=== PATIENT | male | born 1945 | race Caucasian/White ===

== ENCOUNTER 2019-05-17 15:17 | Inpatient (IN) | payer MEDICARE ==
[~2019-05-17] VITALS: Ht 182.9 cm; Wt 119.9 kg
[2019-05-17] MEDS ORDERED: DEPAKOTE500 MG PO (15:38)
[2019-05-17] MEDS ORDERED: KLONOPIN1 MG PO (15:39)
[2019-05-17] MEDS ORDERED: SEROQUEL200 MG PO (15:39)
[2019-05-17] MEDS ORDERED: LIPITOR40 MG PO (15:40)
[2019-05-17] MEDS ORDERED: BAYER CHEWABLE81 MG PO (15:40)
[2019-05-17] MEDS ORDERED: ZYLOPRIM100 MG PO (15:40)
[2019-05-17 16:26] LABS: BASOPHILS 0 % (0-2); HEMATOCRIT 35.6 % (42.0-54.0); HEMOGLOBIN 12.2 g/dL (13.5-17.5); LYMPHOCYTES 52.2 % (15-50); MCH 33.8 pg (26.0-34.0); MCHC 34.3 g/dL (31.0-37.0); MCV 98.6 fL (80.0-100.0); MEAN PLATELET VOLUME 11.5 fL (7.4-10.4); MONOCYTES 6.5 % (2-11); NEUTROPHILS 38.3 % (40-80); PLATELET COUNT 98 10x3/uL (130-400); RBC 3.61 10x6/uL (4.20-6.10); RDW 13.3 % (11.5-14.5); WBC 2.3 10x3/uL (4.8-10.8)
[2019-05-17 16:32] LABS: ANION GAP 20.7 mmol/L (8-16); CALCIUM 7.3 mg/dL (8.5-10.1); CARBON DIOXIDE 25.3 mmol/L (21.0-32.0); CREATININE - SERUM 2.1 mg/dL (0.6-1.3)
[2019-05-17 16:37] LABS: ALBUMIN 2.8 g/dL (3.4-5.0); BILIRUBIN - TOTAL 0.51 mg/dL (0.2-1.3)
[2019-05-17 16:43] LABS: MAGNESIUM - SERUM 0.5 mg/dL (1.8-2.4)
[2019-05-17 17:11] LABS: PLATELET ESTIMATE DECREASED
[2019-05-17 19:10] LABS: KETONE - SERUM NEGATIVE (NEGATIVE)
[2019-05-17 19:20] LABS: AMYLASE - SERUM 62 U/L (25-115); LIPASE 311 U/L (73-393)
[2019-05-17 19:30] VITALS: BP 134/74
--- NOTE | 2019-05-17 20:17 | NUR ---
URINE SENT TO LAB
[2019-05-17 20:20] LABS: APPEARANCE HAZY (CLEAR); BILIRUBIN NEGATIVE (NEGATIVE); COLOR YELLOW (YELLOW); GLUCOSE NEGATIVE (NEGATIVE); KETONE NEGATIVE (NEGATIVE); NITRITE POSITIVE (NEGATIVE); PROTEIN TRACE mg/dL (NEGATIVE); SPECIFIC GRAVITY 1.015 (1.005-1.020); UROBILINOGEN NORMAL (NORMAL)
[2019-05-17 20:25] LABS: RED CELLS - URINE 0-5 /hpf (0-5)
[2019-05-17 20:26] LABS: BACTERIA MODERATE /hpf (NEGATIVE); EPITHELIAL CELLS 0-5 /hpf (0-5)
[2019-05-17 20:27] LABS: UDS - AMPHET NEGATIVE QUAL (NEGATIVE); UDS - BARB NEGATIVE QUAL (NEGATIVE); UDS - BENZO NEGATIVE QUAL (NEGATIVE); UDS - COCAINE NEGATIVE QUAL (NEGATIVE); UDS - OPIATE NEGATIVE QUAL (NEGATIVE); UDS - PCP NEGATIVE QUAL (NEGATIVE); UDS - THC NEGATIVE QUAL (NEGATIVE)
--- NOTE | 2019-05-17 22:45 | NUR ---
SEBASTIÁN VIA WC AND AMBULATES TO BED BED LOW AND LOCKED CALL LIGHT IN PLACE MEEDS SEEN TO AT THIS TIME
[2019-05-17] MEDS ORDERED: COZAAR50 MG PO (22:54)
[2019-05-17] MEDS ORDERED: GLUCOPHAGE500 MG PO (22:54)
[2019-05-18 04:00] VITALS: BP 145/76
--- NOTE | 2019-05-18 04:28 | NUR ---
I have reviewed this patient and I concur with the Shift Assessment completed by the Licensed Practical Nurse today this shift.
[2019-05-18 06:09] VITALS: BP 183/88; BMI 35.9
--- NOTE | 2019-05-18 07:34 | NUR ---
A/A/OX4. DENIES ANY PAIN AND ONLY REQUEST IS FOR LEMON INAJA DRINK WHICH WAS GIVEN. ASSESSMENT COMPLETED AND WILL CONTINUE POC. IV PATENT TO LEFT HAND WITHOUT REDNESS OR EDEMA. ON ROOM AIR WITH RESP EVEN AND UNLABORED. CALL LIGHT IN REACH AND BED IN LOW POSITION.
[2019-05-18 11:24] VITALS: BMI 35.8
[2019-05-18 13:36] VITALS: Ht 182.9 cm; Wt 119.9 kg
[2019-05-18 14:50] LABS: APTT 37.4 SECONDS (22.8-39.4); INR 1.02 (0.85-1.17); PROTIME 13.4 SECONDS (11.6-15.0)
[2019-05-18 14:56] VITALS: BP 167/77
[2019-05-18 16:00] VITALS: BP 169/89
--- NOTE | 2019-05-18 19:00 | NUR ---
GONZALEZ CATH PLACED PER STERILE TECHNIQUE WITH IMMEDIATE RETURN OF 300 CC CLEAR LIGHT YELLOW URINE.
--- NOTE | 2019-05-18 19:30 | NUR ---
REPORT RECEIVED, WILL CONTINUE POC. PATIENT IS AAOX4, LYING IN LOW-FOWLERS POSITION. NO S/S OF DISTRESS OBSERVED, RR EVEN AND UNLABORED ON ROOM AIR. F/C, PATENT, DRAINING YELLOW URINE TO LEFT SIDE OF BED. PATIENT DENIES NEEDS AT THIS TIME. CL IN REACH, BED LOCKED AND LOWERED. WILL CTM.
[2019-05-18 20:00] VITALS: BP 166/86
[2019-05-19] VITALS: BP 134/77
[2019-05-19 04:00] VITALS: BP 153/62
[2019-05-19 05:26] LABS: HEMATOCRIT 28.6 % (42.0-54.0); MCH 33.4 pg (26.0-34.0); MCHC 33.9 g/dL (31.0-37.0); MCV 98.6 fL (80.0-100.0); MEAN PLATELET VOLUME 11.1 fL (7.4-10.4); PLATELET COUNT 92 10x3/uL (130-400); RDW 13.4 % (11.5-14.5)
[2019-05-19 05:28] LABS: HEMOGLOBIN 9.7 g/dL (13.5-17.5); WBC 1.6 10x3/uL (4.8-10.8)
--- NOTE | 2019-05-19 05:44 | NUR ---
CRITICAL LAB RECEIVED WBC 1.6 NOTICED A DROP IN H&H WELL FROM 12.2 & 35.6 TO 9.7 & 28.6. ORDERED STAT HEMOGRAM.
[2019-05-19 05:53] LABS: ALBUMIN 2.2 g/dL (3.4-5.0); BILIRUBIN - TOTAL 0.37 mg/dL (0.2-1.3); CARBON DIOXIDE 28.8 mmol/L (21.0-32.0); PHOSPHOROUS 3.1 mg/dL (2.5-4.9); PROTEIN - SERUM 5.7 g/dL (6.4-8.2)
[2019-05-19 05:54] LABS: ANION GAP 12.1 mmol/L (8-16); CREATININE - SERUM 1.3 mg/dL (0.6-1.3); MAGNESIUM - SERUM 1.3 mg/dL (1.8-2.4)
[2019-05-19 05:55] LABS: CALCIUM 6.7 mg/dL (8.5-10.1); POTASSIUM - SERUM 2.9 mmol/L (3.5-5.1)
--- NOTE | 2019-05-19 06:03 | NUR ---
CRITICAL LABS RECEIVED FOR CALCIUM 6.7 K+2.9, ALSO WAS INFORMED THAT HEMOGRAM RESULTS WERE THE SAME PREVIOUSLY DRAWN CBC.
--- NOTE | 2019-05-19 07:03 | NUR ---
I have reviewed this patient and I concur with the Shift Assessment completed by the Licensed Practical Nurse today this shift.
[2019-05-19 07:50] LABS: EOSINOPHILS 5 % (0-7); LYMPHOCYTES 62 % (15-50); MONOCYTES 9 % (2-11); NEUTROPHILS 24 % (40-80); PLATELET ESTIMATE DECREASED
[2019-05-19 08:54] VITALS: BP 146/65
--- NOTE | 2019-05-19 09:44 | NUR ---
RESTING IN BED. NO DISTRESS.
[2019-05-19 12:00] VITALS: BP 145/69
--- NOTE | 2019-05-19 13:14 | NUR ---
F/C CLAMPED, WAITING TO COLLECT URINE. WAITING FOR PHARMACY TO DELIVER GRANIX.
[2019-05-19 15:19] LABS: % SATURATION 31 % (15-55); IRON 67 ug/dl (35-150); TOTAL IRON BIND CAPACITY 211 ug/dl (260-445); UNSAT IRON BIND CAPACITY 144 ug/dl (150-375)
[2019-05-19 16:00] VITALS: BP 146/84
--- NOTE | 2019-05-19 17:13 | NUR ---
K+ ADMINISTERED FOR 3.4, REDRAW ORDERED FOR 2114
[2019-05-19 20:30] VITALS: BP 179/85
[2019-05-19 20:40] LABS: POTASSIUM - SERUM 3.7 mmol/L (3.5-5.1)
[2019-05-19 20:42] LABS: MAGNESIUM - SERUM 0.8 mg/dL (1.8-2.4)
[2019-05-20] VITALS: BP 148/79
[2019-05-20 03:30] VITALS: BP 164/82
[2019-05-20 05:42] LABS: BASOPHILS 0 % (0-2); EOSINOPHILS 1.2 % (0-7); HEMATOCRIT 30.4 % (42.0-54.0); IMMATURE GRANULOCYTES 0.3 % (0-5); LYMPHOCYTES 26.3 % (15-50); MCH 32.8 pg (26.0-34.0); MCHC 32.9 g/dL (31.0-37.0); MCV 99.7 fL (80.0-100.0); MONOCYTES 5.6 % (2-11); NEUTROPHILS 66.6 % (40-80); PLATELET COUNT 87 10x3/uL (130-400); RBC 3.05 10x6/uL (4.20-6.10); RDW 13.3 % (11.5-14.5); WBC 3.4 10x3/uL (4.8-10.8)
[2019-05-20 06:19] LABS: ALBUMIN 2.2 g/dL (3.4-5.0); ANION GAP 11.5 mmol/L (8-16); BILIRUBIN - TOTAL 0.45 mg/dL (0.2-1.3); CALCIUM 7.2 mg/dL (8.5-10.1); CARBON DIOXIDE 31.1 mmol/L (21.0-32.0); CREATININE - SERUM 1.4 mg/dL (0.6-1.3); PHOSPHOROUS 2.5 mg/dL (2.5-4.9); POTASSIUM - SERUM 3.6 mmol/L (3.5-5.1); PROTEIN - SERUM 5.9 g/dL (6.4-8.2)
[2019-05-20 06:26] LABS: MAGNESIUM - SERUM 0.9 mg/dL (1.8-2.4)
--- NOTE | 2019-05-20 07:12 | NUR ---
PT RESTING PEACEFULLY IN BED. LYING ON PILLOW, BREATHS EVEN REGULAR AND UNLABORED. NO SIGNS OR SYMPTOMS OF ACUTE DISTRESS OTED AT THIS TIME. CL INR EACH, SRX2.
--- NOTE | 2019-05-20 09:56 | NUR ---
I have reviewed this patient and I concur with the Shift Assessment completed by the Licensed Practical Nurse today this shift.
[2019-05-20 10:48] VITALS: BP 136/74
[2019-05-20 15:24] VITALS: BP 132/78
--- NOTE | 2019-05-20 16:50 | NUR ---
PT AWAKE AND ORIENTED. HAS HAD BETTER DAY, STATES HE'S FEELING BETTER TODAY JUST EXCESSEVILY TIRED. FAMILY VISITED THROUGHOUT THE DAY. PT HAD SHOWER AND LINNEN CHANGE. NO COMPLAINTS/CONCERNS AT THIS TIME. CL IN REACH, SRX2.
[2019-05-20 18:27] VITALS: BP 149/83
[2019-05-20 20:00] VITALS: BP 157/83
--- NOTE | 2019-05-20 22:29 | NUR ---
RECEIVED UP IN BED WITH EYES OPEN AND TV ON. ALERT AND ORIENTED X4. UP WITH ASSISTR. IV TO LEFT HAND WITH LR @ 75CC/HR. DSG CLEAN DRY AND INTACT. OFF GOING REPORTED MAG WAS 1.3. WILL RECHECK IN AM. TELEMETRY IN PLACE. F/C INTACT WITH CLEAR YELLOW URINE DRAINING TO BEDISDE DRAINAGE BAG. DENIES ANY PAIN OR NEEDS AT THIS TIME.
[2019-05-21] VITALS: BP 155/72
[2019-05-21 04:00] VITALS: BP 154/77
[2019-05-21 05:26] LABS: BASOPHILS 0.2 % (0-2); EOSINOPHILS 2.2 % (0-7); HEMATOCRIT 30.1 % (42.0-54.0); HEMOGLOBIN 9.9 g/dL (13.5-17.5); IMMATURE GRANULOCYTES 0.2 % (0-5); LYMPHOCYTES 30.1 % (15-50); MCHC 32.9 g/dL (31.0-37.0); MCV 100.3 fL (80.0-100.0); MEAN PLATELET VOLUME 11.3 fL (7.4-10.4); MONOCYTES 6.6 % (2-11); NEUTROPHILS 60.7 % (40-80); PLATELET COUNT 95 10x3/uL (130-400); RDW 13.5 % (11.5-14.5)
[2019-05-21 05:53] LABS: ALBUMIN 2.1 g/dL (3.4-5.0); ANION GAP 8.1 mmol/L (8-16); BILIRUBIN - TOTAL 0.29 mg/dL (0.2-1.3); CALCIUM 7.4 mg/dL (8.5-10.1); CARBON DIOXIDE 33.3 mmol/L (21.0-32.0); CREATININE - SERUM 1.4 mg/dL (0.6-1.3); MAGNESIUM - SERUM 1.1 mg/dL (1.8-2.4); PHOSPHOROUS 2.6 mg/dL (2.5-4.9); POTASSIUM - SERUM 3.4 mmol/L (3.5-5.1); PROTEIN - SERUM 5.8 g/dL (6.4-8.2)
[2019-05-21 05:56] LABS: WBC 4.6 10x3/uL (4.8-10.8)
--- NOTE | 2019-05-21 07:30 | NUR ---
A/A/0X3. DENIES ANY PAIN OR DISCOMFORT AND VOICES NO REQUESTS. IV PATENT TO LEFT HAND WITHOUT REDNESS OR EDEMA AND INFUSING WELL. ASSESSMENT COMPLETED AND WILL CONTINUE POC. BED IN LOW POSITION AND CALL LIGHT IN REACH.
[2019-05-21 08:17] VITALS: BP 152/77
[2019-05-21 08:17] LABS: APPEARANCE HAZY (CLEAR); BACTERIA FEW /hpf (NEGATIVE); BILIRUBIN NEGATIVE (NEGATIVE); COLOR YELLOW (YELLOW); EPITHELIAL CELLS 0-5 /hpf (0-5); GLUCOSE NEGATIVE (NEGATIVE); KETONE SMALL mg/dL (NEGATIVE); NITRITE NEGATIVE (NEGATIVE); PROTEIN TRACE mg/dL (NEGATIVE); RED CELLS - URINE 0-5 /hpf (0-5); UROBILINOGEN NORMAL (NORMAL); WHITE CELLS - URINE 0-5 /hpf (NEGATIVE)
[2019-05-21 11:29] LABS: PLATELET ESTIMATE DECREASED
[2019-05-21 12:01] VITALS: BP 142/74
--- NOTE | 2019-05-21 13:33 | NUR ---
Nutrition Follow-up: Sleeping this AM; did not wake. Ate 75% of breakfast this AM per record. Diet: Cardiac Diabetic PO intake: 75-100% Wt: 264.4# (05/18) Last BM: 05/18 per chart Labs noted: K+ 3.4, Ca 7.4, Alb 2.1, Glu 109, Mg 1.1 Meds noted: KDur, Mag Sulf, MagOx, LR @ 75 -Continue current diet as tolerated. -RD following.
--- NOTE | 2019-05-21 14:42 | NUR ---
PT STATES HE HAS NOT HAD A BM SINCE HE WAS ADMITTED LAST TUESDAY AND IS REQUESTING A LAXATIVE. ORDER RECEIVED FOR MIRALAX AND GIVEN ORDERED.
--- NOTE | 2019-05-21 15:50 | NUR ---
I have reviewed this patient and I concur with the Shift Assessment completed by the Licensed Practical Nurse today this shift.
[2019-05-21 16:00] VITALS: BP 153/82
--- NOTE | 2019-05-21 19:47 | NUR ---
RECEIVED UP IN BED WITH EYES OPEN AND TV ON. ALERT AND ORIETNED X4. BEDFAST AT THIS TIME. DSG TO GWENDOLYN LEGS AND FEET. ALSO TO COCCYX. ALL DSG CDI. CONT TO COLLECT 24 HR URINE. IV TO LEWFT FA WITH NS AT 30CC/HR. EDUCATED ON NEED TO KEEP BLOOD SUGARS UNDER CONTROL FOR HEALING. EXPLAINED WE WOULD NOT BE GIVING HER ICE CRAM ALL NIGHT LONG. HOWEVER SHE COULD HAVE A SANDWICH. ACCEPTED THE SANDWICH BOX. REQUESTED PAIN MEDICATION AND EXPLAINED THAT NOT DUE TIL 1999 AND 2029. DENIES ANY OTHER NEEDS.
--- NOTE | 2019-05-21 19:54 | NUR ---
RECEIVED UP IN BED WITH EYES OPEN AND TV ON. ALERT AND ORIENTED X4. UP WITH ASSIST. NEW ORDER FOR FSBS AND PT AWARE. TELEMETRY IN PLACE. F/C INTACT WITH CLEAR YELLOW URINE DRAINING TO BEDSIDE DRAINAGE BAG. IV TO LEFT HAND WITH NS INFUSING AT 100CC/HR. DENIES ANY NEEDSA T THIS TIME.
[2019-05-21 20:16] VITALS: BP 176/86
[2019-05-22 00:28] VITALS: BP 186/80
[2019-05-22 04:48] LABS: BASOPHILS 0 % (0-2); EOSINOPHILS 3.4 % (0-7); HEMOGLOBIN 9.9 g/dL (13.5-17.5); IMMATURE GRANULOCYTES 0.3 % (0-5); LYMPHOCYTES 37.5 % (15-50); MCH 33.1 pg (26.0-34.0); MCV 100.3 fL (80.0-100.0); MEAN PLATELET VOLUME 11.1 fL (7.4-10.4); MONOCYTES 7.5 % (2-11); NEUTROPHILS 51.3 % (40-80); PLATELET COUNT 97 10x3/uL (130-400); RBC 2.99 10x6/uL (4.20-6.10); RDW 13.5 % (11.5-14.5)
[2019-05-22 05:10] LABS: WBC 3.2 10x3/uL (4.8-10.8)
[2019-05-22 05:26] LABS: ALBUMIN 2.2 g/dL (3.4-5.0); ANION GAP 10.2 mmol/L (8-16); BILIRUBIN - TOTAL 0.23 mg/dL (0.2-1.3); CALCIUM 7.7 mg/dL (8.5-10.1); CARBON DIOXIDE 30.6 mmol/L (21.0-32.0); CREATININE - SERUM 1.2 mg/dL (0.6-1.3); POTASSIUM - SERUM 3.8 mmol/L (3.5-5.1); PROTEIN - SERUM 5.8 g/dL (6.4-8.2)
[2019-05-22 05:30] VITALS: BP 188/92
[2019-05-22 05:33] LABS: MAGNESIUM - SERUM 1.4 mg/dL (1.8-2.4)
--- NOTE | 2019-05-22 07:30 | NUR ---
A/A/OX4. DENIES ANY PAIN OR DISCOMFORT AND NO REQUESTS VOICED. IV PATENT TO LEFT HAND WITHOUT REDNESS OR EDEMA. GONZALEZ PATENT AND DRAINING CLEAR YELLOW COLORED URINE TO BEDSIDE DRAINAGE. ASSESSMENT COMPLETED AND WILL CONTINUE POC. BED IN LOW POSITION AND CALL LIGHT IN REACH.
[2019-05-22 08:10] LABS: HEPATITIS C ANTIBODY <0.1 S/CO RAT (0.0-0.9)
[2019-05-22 10:47] VITALS: BP 171/80
--- NOTE | 2019-05-22 12:15 | NUR ---
OT NOTE: ATTEMPTED TO EVAL PT, HOWEVER, FAMILY REQUESTED TO HOLD PT JUST GOT TO SLEEP. GUILLERMINA TORRES, OTR/L
[2019-05-22 12:41] VITALS: BP 162/89
[2019-05-22 16:00] VITALS: BP 165/83
--- NOTE | 2019-05-22 17:02 | MORECARE ---
CASE MANAGEMENT DISCHARGE SUMMARY PATIENT: ADILENE REDMAN UNIT: [id number] ADM DATE: 05/18/19 AGE: 73 : 47 SEX: M ROOM/BED: D.2101 AUTHOR: JAZIEL,DOC PHYSICIAN: REFERRING PHYSICIAN: BESS CHARLES MD DATE OF SERVICE: 05/22/19 Discharge Plan Patient Name: ADILENE REDMAN Facility: [facility]:[place] : 1945 Planned Disposition: Senior Care Facility Anticipated Discharge Date: Discharge Date: Expected LOS: Initial Reviewer: [id number] Initial Review Date: 05/22/2019 Generated: 05/22/19 6:02 pm DCPIA - Discharge Planning Initial Assessment Updated by LA: Jcarlos Calderon on 05/22/19 5:02 pm * Is the patient Alert and Oriented? Yes * How many steps to enter\exit or inside your home? NONE * PCP DR. CROSS * Pharmacy [facility] OR [facility] * Preadmission Environment Home Alone * ADLs Independent * Equipment None * Other Equipment NO MEDICAL EQUIPMENT PROVIDER PREFERENCE * List name and contact numbers for known caregivers / representatives who currently or will assist patient after discharge: LISANDRA HANSEN, DTR, JOSSUE REDMAN, EX , * Verbal permission to speak to the caregivers and representatives has been obtained from the patient. Yes * Community resources currently utilized None * Please name any agencies selected above. NONE * Additional services required to return to the preadmission environment? Yes * Can the patient safely return to the preadmission environment? Yes * Has this patient been hospitalized within the prior 30 days at any hospital? No Coverage Notice Reviewer: [id number] Azucena Calderon Notice Issued Date-Time: 05/22/2019 13:30 Notice Type: IM Discharge Notice Notice Delivered To: Patient Relationship to Patient: Chemist Internship Name: Delivery Method: HAND - Hand Delivered Nano Days: Prior Verbal Notification: Recipient Understood Notice: Yes Recipient Signature: Yes Med Rec Note Co-signed by Attending: Coverage Notice Comment: Reviewer: [id number] Azucena Calderon Notice Issued Date-Time: 05/22/2019 13:30 Notice Type: Patient Choice Letter Notice Delivered To: Patient Relationship to Patient: Chemist Internship Name: Delivery Method: HAND - Hand Delivered Nano Days: Prior Verbal Notification: Recipient Understood Notice: Yes Recipient Signature: Yes Med Rec Note Co-signed by Attending: Coverage Notice Comment: [facility] Patient Name: ADILENE REDMAN Page [phone] at 1702 All edits/amendments must be made on the electronic document DICTATION DATE: 05/22/191701 PRICING DIRECTOR: SENDY 05/22/191701 RPT#: [id number] DC DATE: STATUS: ADM IN [facility] [address] [place] [address] END OF REPORT
--- NOTE | 2019-05-22 17:11 | MORECARE ---
CASE MANAGEMENT DISCHARGE SUMMARY PATIENT: ADILENE REDMAN UNIT: [id number] ADM DATE: 05/18/19 AGE: 73 : 47 SEX: M ROOM/BED: D.2101 AUTHOR: JAZIEL,DOC PHYSICIAN: REFERRING PHYSICIAN: BESS CHARLES MD DATE OF SERVICE: 05/22/19 Discharge Plan Patient Name: ADILENE REDMAN Facility: [facility]:[place] : 1945 Planned Disposition: Correction Facility Anticipated Discharge Date: Discharge Date: Expected LOS: Initial Reviewer: [email or web address] Initial Review Date: 05/22/2019 Generated: 05/22/19 6:11 pm Comments DCP- Discharge Planning Updated by [email or web address]: Jcarlos Calderon on 05/22/19 4:[address] Patient Name: ADILENE REDMAN Admission Status: ER Accout number: [id number] Admission Date: 05-18-2019 : 1945 Admission Diagnosis: Attending: BESS CHARLES Current LOS: 4 Anticipated DC Date: Planned Disposition: Correction Facility Primary Insurance: MEDICARE A & B PLANNED EXERNAL PROVIDER PREFERENCE: [facility], MEDICARE REHAB BED Discharge Planning Comments: CM MET WITH PT AND EX IN ROOM TO DISCUSS DISCHARGE PLANNING AND NEEDS. ADILENE REDMAN provided verbal consent to discuss current and ongoing needs with/in the presence of: EX JOSSUE AND DAUGHTER LISANDRA. PT REPORTS LIVING AT HOME INDEPENDENTLY AND ALONE. PT HAS NO MEDICAL EQUIPMENT AND NO OUTSIDE SERVICES ASSISTING IN THE HOME. CM DISCUSSED AVAILABILITY OF HOME HEALTH, REHAB SERVICES AND MEDICAL EQUIPMENT. PT WANTS REHAB AT [facility], CHOICE SIGNED. PT HAD HIS EX CALL HIS DAUGHTER, QUESTIONS ANSWERED, SHE IS ALSO IN AGREEMENT WITH REHAB AT [facility] AND WILL ASSIST WITH PAPERWORK AT THE REHAB IF NEEDED. PT REPROTS HE WAS DRINKING A PINT TO A FIFTH OF GRADY LOIS DAILY, BUT STOPPED WHEN HE CAME TO THE HOSPITAL AND WILL NOT DRINK AGAIN. PT DENIES NEED FOR INPATIENT ALCOHOL ABUSE PROGRAM AND DENIES NEED OF COMMUNITY SUPPORT GROUP INFORMATION. IMPORTANT MESSAGE FROM MEDICARE PROVIDED AND EXPLAINED. CM TO SEND REFERRAL FOR REHAB SERVICES TO [facility] SOON POSSIBLE. Clinical Investigator: Jcarlos Calderon DCPIA - Discharge Planning Initial Assessment Updated by [email or web address]: Jcarlos Calderon on 05/22/19 5:02 pm * Is the patient Alert and Oriented? Yes * How many steps to enter\exit or inside your home? NONE * PCP DR. CROSS * Pharmacy [facility] OR [employer], [address] * Preadmission Environment Home Alone * ADLs Independent * Equipment None * Other Equipment NO MEDICAL EQUIPMENT PROVIDER PREFERENCE * List name and contact numbers for known caregivers / representatives who currently or will assist patient after discharge: LISANDRA HANSEN, DTR, JOSSUE REDMAN, EX , * Verbal permission to speak to the caregivers and representatives has been obtained from the patient. Yes * Community resources currently utilized None * Please name any agencies selected above. NONE * Additional services required to return to the preadmission environment? Yes * Can the patient safely return to the preadmission environment? Yes * Has this patient been hospitalized within the prior 30 days at any hospital? No External Providers External Provider: JACQUISanket Allen [facility] Next Contact Date: 05/22/2019 Service Request Date: Service Type: Resolution: Reviewer: Comments: Coverage Notice Reviewer: [id number] Azucena Calderon Notice Issued Date-Time: 05/22/2019 13:30 Notice Type: IM Discharge Notice Notice Delivered To: Patient Relationship to Patient: Director Of Corporate Strategy Name: Delivery Method: HAND - Hand Delivered Nano Days: Prior Verbal Notification: Recipient Understood Notice: Yes Recipient Signature: Yes Med Rec Note Co-signed by Attending: Coverage Notice Comment: Reviewer: [id number] Azucena Calderon Notice Issued Date-Time: 05/22/2019 13:30 Notice Type: Patient Choice Letter Notice Delivered To: Patient Relationship to Patient: Director Of Corporate Strategy Name: Delivery Method: HAND - Hand Delivered Nano Days: Prior Verbal Notification: Recipient Understood Notice: Yes Recipient Signature: Yes Med Rec Note Co-signed by Attending: Coverage Notice Comment: SANKET SAUNDERS export: 05/22/19 4:02 p Patient Name: ADILENE REDMAN Page [phone] at 1711 All edits/amendments must be made on the electronic document DICTATION DATE: 05/22/19 1711 CONTROL ROOM OPERATOR: SENDY 05/22/19 1711 RPT#: [id number] DC DATE: STATUS: ADM IN [facility] [address] [place] [address] END OF REPORT
--- NOTE | 2019-05-22 17:28 | MORECARE ---
CASE MANAGEMENT DISCHARGE SUMMARY PATIENT: ADILENE REDMAN UNIT: [id number] ADM DATE: 05/18/19 AGE: 73 : 47 SEX: M ROOM/BED: D.2101 AUTHOR: JAZIEL,DOC PHYSICIAN: REFERRING PHYSICIAN: BESS CHARLES MD DATE OF SERVICE: 05/22/19 Discharge Plan Patient Name: ADILENE REDMAN Facility: [facility]:[place] : 1945 Planned Disposition: Nursing Home Facility Anticipated Discharge Date: Discharge Date: Expected LOS: Initial Reviewer: [id number] Initial Review Date: 05/22/2019 Generated: 05/22/19 6:28 pm Comments DCP- Discharge Planning Updated by [id number]: Jcarlos Mcfarland on 05/22/19 4:[address] Patient Name: ADILENE REDMAN Admission Status: ER Accout number: [id number] Admission Date: 05-18-2019 : 1945 Admission Diagnosis: Attending: BESS CHARLES Current LOS: 4 Anticipated DC Date: Planned Disposition: Nursing Home Facility Primary Insurance: MEDICARE A & B PLANNED EXERNAL PROVIDER PREFERENCE: [facility], MEDICARE REHAB BED Discharge Planning Comments: CM MET WITH PT AND EX IN ROOM TO DISCUSS DISCHARGE PLANNING AND NEEDS. ADILENE REDMAN provided verbal consent to discuss current and ongoing needs with/in the presence of: EX JOSSUE AND DAUGHTER LISANDRA. PT REPORTS LIVING AT HOME INDEPENDENTLY AND ALONE. PT HAS NO MEDICAL EQUIPMENT AND NO OUTSIDE SERVICES ASSISTING IN THE HOME. CM DISCUSSED AVAILABILITY OF HOME HEALTH, REHAB SERVICES AND MEDICAL EQUIPMENT. PT WANTS REHAB AT [facility], CHOICE SIGNED. PT HAD HIS EX CALL HIS DAUGHTER, QUESTIONS ANSWERED, SHE IS ALSO IN AGREEMENT WITH REHAB AT [facility] AND WILL ASSIST WITH PAPERWORK AT THE REHAB IF NEEDED. PT REPROTS HE WAS DRINKING A PINT TO A FIFTH OF GRADY LOIS DAILY, BUT STOPPED WHEN HE CAME TO THE HOSPITAL AND WILL NOT DRINK AGAIN. PT DENIES NEED FOR INPATIENT ALCOHOL ABUSE PROGRAM AND DENIES NEED OF COMMUNITY SUPPORT GROUP INFORMATION. IMPORTANT MESSAGE FROM MEDICARE PROVIDED AND EXPLAINED. CM TO SEND REFERRAL FOR REHAB SERVICES TO [facility] SOON POSSIBLE. Linux Devops Engineer: Jcarlos Mcfarland Appended by Jcarlos Mcfarland on 05/22/2019 17:20 PULMONOLOGY PHYSICIAN: CM FAXED REFERRAL TO [facility], . CM WAITING ADMISSION DETERMINATION FROM [facility] FOR [facility]AB SERVICES. JCARLOS MCFARLAND, CASE MANAGEMENT DCPIA - Discharge Planning Initial Assessment Updated by [email or web address]: Jcarlos Mcfarland on 05/22/19 5:02 pm * Is the patient Alert and Oriented? Yes * How many steps to enter\exit or inside your home? NONE * PCP DR. CROSS * Pharmacy [facility], [facility] OR [employer], [address] * Preadmission Environment Home Alone * ADLs Independent * Equipment None * Other Equipment NO MEDICAL EQUIPMENT PROVIDER PREFERENCE * List name and contact numbers for known caregivers / representatives who currently or will assist patient after discharge: LISANDRA HANSEN, DTR, JOSSUE REDMAN, EX , * Verbal permission to speak to the caregivers and representatives has been obtained from the patient. Yes * Community resources currently utilized None * Please name any agencies selected above. NONE * Additional services required to return to the preadmission environment? Yes * Can the patient safely return to the preadmission environment? Yes * Has this patient been hospitalized within the prior 30 days at any hospital? No Coverage Notice Reviewer: [email or web address] Mcfarland Notice Issued Date-Time: 05/22/2019 13:30 Notice Type: IM Discharge Notice Notice Delivered To: Patient Relationship to Patient: Air Twist Operator Name: Delivery Method: HAND - Hand Delivered Nano Days: Prior Verbal Notification: Recipient Understood Notice: Yes Recipient Signature: Yes Med Rec Note Co-signed by Attending: Coverage Notice Comment: Reviewer: [id number] Azucena Mcfarland Notice Issued Date-Time: 05/22/2019 13:30 Notice Type: Patient Choice Letter Notice Delivered To: Patient Relationship to Patient: Air Twist Operator Name: Delivery Method: HAND - Hand Delivered Nano Days: Prior Verbal Notification: Recipient Understood Notice: Yes Recipient Signature: Yes Med Rec Note Co-signed by Attending: Coverage Notice Comment: [facility] Duenas DP export: 05/22/19 4:11 p Patient Name: ADILENE REDMAN Page [id number] at 1728 All edits/amendments must be made on the electronic document DICTATION DATE: 05/22/191727 WAX PATTERN ASSEMBLER: SENDY 05/22/191727 RPT#: [id number] DC DATE: STATUS: ADM IN [facility] [address] [place] [address] END OF REPORT
--- NOTE | 2019-05-22 18:14 | NUR ---
I have reviewed this patient and I concur with the Shift Assessment completed by the Licensed Practical Nurse today this shift.
--- NOTE | 2019-05-22 19:27 | NUR ---
EVENING ROUNDS COMPLETE, PT SITTING UP IN BED. AAOX4. NO SIGNS OF DISTRESS. PT DENIES ANY PAIN OR NEEDS AT THIS TIME. CL IN REACH, BED IN LOWEST POSITION.
[2019-05-22 21:20] VITALS: BP 191/91
[2019-05-23] VITALS: BP 164/78
[2019-05-23 05:01] VITALS: BP 176/87
[2019-05-23 06:17] LABS: HEMATOCRIT 30.1 % (42.0-54.0); HEMOGLOBIN 9.9 g/dL (13.5-17.5); MCH 33.1 pg (26.0-34.0); MCHC 32.9 g/dL (31.0-37.0); MCV 100.7 fL (80.0-100.0); MEAN PLATELET VOLUME 11.8 fL (7.4-10.4); PLATELET COUNT 96 10x3/uL (130-400); RBC 2.99 10x6/uL (4.20-6.10); RDW 13.5 % (11.5-14.5); WBC 2.7 10x3/uL (4.8-10.8)
[2019-05-23 06:35] LABS: ALBUMIN 2.2 g/dL (3.4-5.0); ANION GAP 7.7 mmol/L (8-16); BILIRUBIN - TOTAL 0.31 mg/dL (0.2-1.3); CALCIUM 8.2 mg/dL (8.5-10.1); CARBON DIOXIDE 32.2 mmol/L (21.0-32.0); CREATININE - SERUM 1.3 mg/dL (0.6-1.3); MAGNESIUM - SERUM 1.3 mg/dL (1.8-2.4); PHOSPHOROUS 2.8 mg/dL (2.5-4.9); POTASSIUM - SERUM 3.9 mmol/L (3.5-5.1); PROTEIN - SERUM 5.9 g/dL (6.4-8.2)
[2019-05-23 07:39] LABS: ANISOCYTOSIS 2+; EOSINOPHILS 6 % (0-7); HYPOCHROMASIA 1+; LYMPHOCYTES 49 % (15-50); MONOCYTES 8 % (2-11); NEUTROPHILS 37 % (40-80); PLATELET ESTIMATE DECREASED
--- NOTE | 2019-05-23 08:19 | NUR ---
RECIEVED REPORT. PATIENT IS RESTING QUIETLY IN BED ON HIS BACK AT THIS TIME. DENIES ANY NEEDS AT THIS TIME.
[2019-05-23 10:22] VITALS: BP 170/84
--- NOTE | 2019-05-23 10:22 | NUR ---
PT AND OT HAVE LOOKED IN ON THE PATIENT. HE IS SITTING UP IN THE CHAIR.
--- NOTE | 2019-05-23 11:16 | NUR ---
PATIENT HAS ELEVATED B/P . TREATING LOW MAG.
--- NOTE | 2019-05-23 13:10 | MORECARE ---
CASE MANAGEMENT DISCHARGE SUMMARY PATIENT: ADILENE REDMAN UNIT: [id number] ADM DATE: 05/18/19 AGE: 73 : [birth year] SEX: M ROOM/BED: D.2101 AUTHOR: JAZIEL,DOC PHYSICIAN: REFERRING PHYSICIAN: BESS CHARLES MD DATE OF SERVICE: 05/23/19 Discharge Plan Patient Name: ADILENE REDMAN Facility: [facility]:[place] : 1945 Planned Disposition: Shelter Facility Anticipated Discharge Date: Discharge Date: Expected LOS: Initial Reviewer: [id number] Initial Review Date: 05/22/2019 Generated: 05/23/19 2:10 pm Comments DCP- Discharge Planning Updated by [id number]: Jcarlos Mcfarland on 05/23/19 12:[address] Patient Name: ADILENE REDMAN Encounter No: [id number] : 1945 Primary Insurance: MEDICARE A & B Anticipated DC Date: Planned Disposition: Shelter Facility External Planned Provider: TO BE DETERMINED DCP follow-up note: CM RECEIVED CALL FROM GUILLERMINA MEJIA [facility] WHO INFORMED CM THAT THE INFORMATION PROVIDED INDICATES PHYSICAL THERAPY ASSESSED PT TO HAVE NO SKILLED PHYSICAL THERAPY NEED, [facility] WILL NOT ACCEPT. LUIS MET WITH TREATMENT TEAM AT MULTIDISCIPLINARY TEAM MEETING, WAS INFORMED BY THERAPY SERVICES DIRECTOR THAT PT COULD ADMIT TO ANOTHER CARE HOME IF OCCUPATIONAL THERAPY EVALUATION, WHICH IS PENDING, INDICATES PT HAS SKILLED NEED. CM CALLED AND SPOKE TO NURSING CONSULTANTS OF [facility] AND [facility], WAS ADVISED THAT PHYSICAL THERAPY NEED CAN STAND ALONE FOR SNF ADMISSION, BUT PT WOULD HAVE TO HAVE OTHER MEDICAL NEED OTHER THAN OCCUPATIONAL THERAPY, SUCH PEG TUBE, WOUND CARE OR IV ANTIBIOTICS. CM CALLED AND SPOKE TO MELANIE [facility] WHO INDICATED SHE THINKS PT WOULD HAVE TO HAVE OTHER NEED OTHER THAN OCCUPATIONAL THERAPY, BUT WILL CHECK TO SEE IF THEY MAY CONSIDER. CM WAITING ON OCCUPATIONAL THERAPY EVALUATION AND WILL SPEAK TO PT REGARDING OPTIONS WHEN PT'S DISCHARGE TREATMENT NEEDS ARE KNOWN. Jcarlos Mcfarland, CASE MANAGEMENT DCP- Discharge Planning Updated by [id number]: Jcarlos Mcfarland on 05/22/19 4:[address] Patient Name: ADILENE REDMAN Admission Status: ER Accout number: [id number] Admission Date: 05-18-2019 : 1945 Admission Diagnosis: Attending: BESS CHARLES Current LOS: 4 Anticipated DC Date: Planned Disposition: Shelter Facility Primary Insurance: MEDICARE A & B PLANNED EXERNAL PROVIDER PREFERENCE: [facility] Discharge Planning Comments: CM MET WITH PT AND EX IN ROOM TO DISCUSS DISCHARGE PLANNING AND NEEDS. ADILENE REDMAN provided verbal consent to discuss current and ongoing needs with/in the presence of: EX JOSSUE AND DAUGHTER LISANDRA. PT REPORTS LIVING AT HOME INDEPENDENTLY AND ALONE. PT HAS NO MEDICAL EQUIPMENT AND NO OUTSIDE SERVICES ASSISTING IN THE HOME. CM DISCUSSED AVAILABILITY OF HOME HEALTH, REHAB SERVICES AND MEDICAL EQUIPMENT. PT WANTS REHAB AT [facility], CHOICE SIGNED. PT HAD HIS EX CALL HIS DAUGHTER, QUESTIONS ANSWERED, SHE IS ALSO IN AGREEMENT WITH REHAB AT [facility] AND WILL ASSIST WITH PAPERWORK AT THE REHAB IF NEEDED. PT REPROTS HE WAS DRINKING A PINT TO A FIFTH OF GRADY LOIS DAILY, BUT STOPPED WHEN HE CAME TO THE HOSPITAL AND WILL NOT DRINK AGAIN. PT DENIES NEED FOR INPATIENT ALCOHOL ABUSE PROGRAM AND DENIES NEED OF COMMUNITY SUPPORT GROUP INFORMATION. IMPORTANT MESSAGE FROM MEDICARE PROVIDED AND EXPLAINED. CM TO SEND REFERRAL FOR REHAB SERVICES TO [facility] SOON POSSIBLE. Electronic Component Processor: Jcarlos Mcfarland Appended by Jcarlos Mcfarland on 05/22/2019 17:20 DRIVER'S EDUCATION INSTRUCTOR: CM FAXED REFERRAL TO [facility], . CM WAITING ADMISSION DETERMINATION FROM [facility] FOR REHAB SERVICES. JACRLOS MCFARLAND, CASE MANAGEMENT DCPIA - Discharge Planning Initial Assessment Updated by [id number]: Jcarlos Mcfarland on 05/22/19 5:02 pm * Is the patient Alert and Oriented? Yes * How many steps to enter\exit or inside your home? NONE * PCP DR. CROSS * Pharmacy [facility], [employer] [facility] OR [employer] * Preadmission Environment Home Alone * ADLs Independent * Equipment None * Other Equipment NO MEDICAL EQUIPMENT PROVIDER PREFERENCE * List name and contact numbers for known caregivers / representatives who currently or will assist patient after discharge: LISANDRA HANSEN, DTR, JOSSUE REDMAN, EX , * Verbal permission to speak to the caregivers and representatives has been obtained from the patient. Yes * Community resources currently utilized None * Please name any agencies selected above. NONE * Additional services required to return to the preadmission environment? Yes * Can the patient safely return to the preadmission environment? Yes * Has this patient been hospitalized within the prior 30 days at any hospital? No Coverage Notice Reviewer: [id number] Azucena Mcfarland Notice Issued Date-Time: 05/22/2019 13:30 Notice Type: IM Discharge Notice Notice Delivered To: Patient Relationship to Patient: Adapted Physical Education Specialist Name: Delivery Method: HAND - Hand Delivered Nano Days: Prior Verbal Notification: Recipient Understood Notice: Yes Recipient Signature: Yes Med Rec Note Co-signed by Attending: Coverage Notice Comment: Reviewer: [id number] Azucena Mcfarland Notice Issued Date-Time: 05/22/2019 13:30 Notice Type: Patient Choice Letter Notice Delivered To: Patient Relationship to Patient: Adapted Physical Education Specialist Name: Delivery Method: HAND - Hand Delivered Nano Days: Prior Verbal Notification: Recipient Understood Notice: Yes Recipient Signature: Yes Med Rec Note Co-signed by Attending: Coverage Notice Comment: [facility] Duenas DP export: 05/22/19 4:28 p Patient Name: ADILENE REDMAN Page [phone] at 1310 All edits/amendments must be made on the electronic document DICTATION DATE: 05/23/19 1310 PIECE MARKER SMALL ARMS: SENDY 05/23/19 1310 RPT#: [id number] DC DATE: STATUS: ADM IN [facility] [address] [place] [address] END OF REPORT
--- NOTE | 2019-05-23 13:48 | MORECARE ---
CASE MANAGEMENT DISCHARGE SUMMARY PATIENT: ADILENE REDMAN UNIT: [id number] ADM DATE: 05/18/19 AGE: 73 : [birth year] SEX: M ROOM/BED: D.2101 AUTHOR: JAZIEL,DOC PHYSICIAN: REFERRING PHYSICIAN: BESS CHARLES MD DATE OF SERVICE: 05/23/19 Discharge Plan Patient Name: ADILENE REDMAN Facility: [facility]:[place] : 1945 Planned Disposition: Fpc Facility Anticipated Discharge Date: Discharge Date: Expected LOS: Initial Reviewer: [id number] Initial Review Date: 05/22/2019 Generated: 05/23/19 2:47 pm Comments DCP- Discharge Planning Updated by [email or web address]: Jem Calderon on 05/23/19 12:[address] Patient Name: ADILENE REDMAN Encounter No: [id number] : 1945 Primary Insurance: MEDICARE A & B Anticipated DC Date: Planned Disposition: Fpc Facility External Planned Provider: TO BE DETERMINED DCP follow-up note: CM RECEIVED CALL FROM GUILLERMINA MEJIA [facility] WHO INFORMED CM THAT THE INFORMATION PROVIDED INDICATES PHYSICAL THERAPY ASSESSED PT TO HAVE NO SKILLED PHYSICAL THERAPY NEED, [facility] WILL NOT ACCEPT. LUIS MET WITH TREATMENT TEAM AT MULTIDISCIPLINARY TEAM MEETING, WAS INFORMED BY THERAPY SERVICES DIRECTOR THAT PT COULD ADMIT TO ANOTHER [facility] IF OCCUPATIONAL THERAPY EVALUATION, WHICH IS PENDING, INDICATES PT HAS SKILLED NEED. CM CALLED AND SPOKE TO NURSING CONSULTANTS OF [facility] AND [facility], WAS ADVISED THAT PHYSICAL THERAPY NEED CAN STAND ALONE FOR SNF ADMISSION, BUT PT WOULD HAVE TO HAVE OTHER MEDICAL NEED OTHER THAN OCCUPATIONAL THERAPY, SUCH PEG TUBE, WOUND CARE OR IV ANTIBIOTICS. CM CALLED AND SPOKE TO MELANIE [facility] WHO INDICATED SHE THINKS PT WOULD HAVE TO HAVE OTHER NEED OTHER THAN OCCUPATIONAL THERAPY, BUT WILL CHECK TO SEE IF THEY MAY CONSIDER. CM WAITING ON OCCUPATIONAL THERAPY EVALUATION AND WILL SPEAK TO PT REGARDING OPTIONS WHEN PT'S DISCHARGE TREATMENT NEEDS ARE KNOWN. Jem Calderon, CASE MANAGEMENT Appended by Jem Calderon on 05/23/2019 13:43 WAITER/WAITRESS DINING CAR: CM SPOKE TO PT'S DAUGHTER VIA PHONE AND DISCUSSED PHYSICAL THERAPY RESULTS; PT'S DAUGHTER STATES THAT PT HAS TOLD HER THAT HE DOES NOT WANT TO GO TO REHAB ANYWAY AND WILL BE GOING TO HER HOME AT DISCHARGE. PT DOES NOT CURRENTLY HAVE PRIMARY DOCTOR TO FOLLOW H OME HEALTH ORDERS. PT'S DAUGHTER DENIES NEEDS OTHER THAN A WALKER FOR PT TO USE AT HOME AND SHE WILL GET HIM ANY NEEDED MEDICAL EQUIOPMENT FROM THE [place] LOAN CLOSET. PT'S DAUGHTER PLANS TO TAKE PT TO HER HOME AT DISCHARGE, DENIES DISCHARGE NEEDS AT THIS TIME, SHE WILL BE TRANSPORTING PT TO HER HOME AT DISCHARGE. CM TO FOLLOW AND ASSIST IF NEEDED. Ray JORGENSEN ASE MANAGEMENT DCP- Discharge Planning Updated by [id number]: Jem Calderon on 05/22/19 4:[address] Patient Name: ADILENE REDMAN Admission Status: ER Accout number: [id number] Admission Date: 05-18-2019 : 1945 Admission Diagnosis: Attending: BESS CHARLES Current LOS: 4 Anticipated DC Date: Planned Disposition: Fpc Facility Primary Insurance: MEDICARE A & B PLANNED EXERNAL PROVIDER PREFERENCE: [facility], MEDICARE REHAB BED Discharge Planning Comments: CM MET WITH PT AND EX IN ROOM TO DISCUSS DISCHARGE PLANNING AND NEEDS. ADILEEN REDMAN provided verbal consent to discuss current and ongoing needs with/in the presence of: EX JOSSUE AND DAUGHTER LISANDRA. PT REPORTS LIVING AT HOME INDEPENDENTLY AND ALONE. PT HAS NO MEDICAL EQUIPMENT AND NO OUTSIDE SERVICES ASSISTING IN THE HOME. CM DISCUSSED AVAILABILITY OF HOME HEALTH, REHAB SERVICES AND MEDICAL EQUIPMENT. PT WANTS REHAB AT [facility], CHOICE SIGNED. PT HAD HIS EX CALL HIS DAUGHTER, QUESTIONS ANSWERED, SHE IS ALSO IN AGREEMENT WITH REHAB AT [facility] AND WILL ASSIST WITH PAPERWORK AT THE REHAB IF NEEDED. PT REPROTS HE WAS DRINKING A PINT TO A FIFTH OF GRADY LOIS DAILY, BUT STOPPED WHEN HE CAME TO THE HOSPITAL AND WILL NOT DRINK AGAIN. PT DENIES NEED FOR INPATIENT ALCOHOL ABUSE PROGRAM AND DENIES NEED OF COMMUNITY SUPPORT GROUP INFORMATION. IMPORTANT MESSAGE FROM MEDICARE PROVIDED AND EXPLAINED. CM TO SEND REFERRAL FOR REHAB SERVICES TO [facility] SOON POSSIBLE. [employer]: Jem Calderon Appended by Jem Calderon on 05/22/2019 17:20 WAITER/WAITRESS DINING CAR: CM FAXED REFERRAL TO [facility], . CM WAITING ADMISSION DETERMINATION FROM [facility] FOR REHAB SERVICES. JEM BARTOLO, CASE MANAGEMENT DCPIA - Discharge Planning Initial Assessment Updated by [id number]: Jme Calderon on 05/22/19 5:02 pm * Is the patient Alert and Oriented? Yes * How many steps to enter\exit or inside your home? NONE * PCP DR. CROSS * Pharmacy [facility] OR [employer] * Preadmission Environment Home Alone * ADLs Independent * Equipment None * Other Equipment NO MEDICAL EQUIPMENT PROVIDER PREFERENCE * List name and contact numbers for known caregivers / representatives who currently or will assist patient after discharge: LISANDRA HANSEN, DTR, JOSSUE REDMAN, EX , * Verbal permission to speak to the caregivers and representatives has been obtained from the patient. Yes * Community resources currently utilized None * Please name any agencies selected above. NONE * Additional services required to return to the preadmission environment? Yes * Can the patient safely return to the preadmission environment? Yes * Has this patient been hospitalized within the prior 30 days at any hospital? No Coverage Notice Reviewer: [id number] Calderon Notice Issued Date-Time: 05/22/2019 13:30 Notice Type: IM Discharge Notice Notice Delivered To: Patient Relationship to Patient: Nursing Unit Coordinator Name: Delivery Method: HAND - Hand Delivered Nano Days: Prior Verbal Notification: Recipient Understood Notice: Yes Recipient Signature: Yes Med Rec Note Co-signed by Attending: Coverage Notice Comment: Reviewer: LA Calderon Notice Issued Date-Time: 05/22/2019 13:30 Notice Type: Patient Choice Letter Notice Delivered To: Patient Relationship to Patient: Nursing Unit Coordinator Name: Delivery Method: HAND - Hand Delivered Nano Days: Prior Verbal Notification: Recipient Understood Notice: Yes Recipient Signature: Yes Med Rec Note Co-signed by Attending: Coverage Notice Comment: KAMI Duenas DP export: 05/23/19 12:10 p Patient Name: ADILENE REDMAN Page [phone] at 1348 All edits/amendments must be made on the electronic document DICTATION DATE: 05/23/19 1347 MEDIA ACCOUNT EXECUTIVE: SENDY 05/23/19 1347 RPT#: [id number] DC DATE: STATUS: ADM IN [facility] [address] [place] [address] END OF REPORT
[2019-05-23 13:53] VITALS: BP 165/99
[2019-05-23 16:57] VITALS: BP 160/90
--- NOTE | 2019-05-23 17:07 | NUR ---
OT NOTE: PT COMPLETED BED MOB TASKS WITH MIN A. PT COMPLETED HYGIENE TASKS WITH MIN A. PT COMPLETED UE AROM AX. [id number] THANK YOU,KRYSTYNA FIGUEROA
--- NOTE | 2019-05-23 17:11 | NUR ---
PATIENT IS MUCH STRONGER. HE IS UP WITH STAND BY ASSIST FROM BED TO CHAIR. HE IS UP WITH WALKER TO THE BATHROOM AND HE HAS A GONZALEZ IN PLACE SO WE ARE WATCHING ALL HIS CORDS. HE KNOWS TO CALL THE NURSE WHEN HE IS DONE. HIS DAUGHTER IS IN THE ROOM WITH HIM.
--- NOTE | 2019-05-23 17:14 | NUR ---
DAUGHTER REPORTS THAT PATIENT HAS HAD HIS PROSTATE REMOVED. PATIENT IS MORE ALERT AND AWAKE.
--- NOTE | 2019-05-23 17:16 | NUR ---
REPLACING STAT LOCK ON LEG FOR URINARY CATHETER.
--- NOTE | 2019-05-23 17:38 | NUR ---
PATIENT GOT UP TO THE BATHROOM. STAT LOCK REPLACED ON LEG. NEW PULL UP ON . HE HAD A BM.
[2019-05-23 20:00] VITALS: BP 149/81
--- NOTE | 2019-05-23 23:43 | NUR ---
LYING IN BED WATCHING TV. ALERT AND ORIENTED x4. CAN SHOW SOME CONFUSION AT TIMES. NO SIGNS OR SYMPTOMS OF DISTRESS NOTED. RESPIRATIONS EVEN AND UNLABORED. 97 ROOM AIR. BOWELL SOUNDS ACTIVE x4. PT STATES LAST BOWELL MOVEMENT WAS 05/23/19. NO COMPLAINTS OF PAIN AT THIS TIME. UP WITH ASSIST. PRN MAGNESIUM AT 2110. PT TOLERATED WELL. CALL LIGHT IS WITHIN REACH AND BED IN LOWEST POSITION. WILL CONTINUE TO MONITOR.
[2019-05-24] VITALS: BP 140/69
--- NOTE | 2019-05-24 00:57 | NUR ---
PULLED PT UP IN BED. BED ALARM IS SET YELLOW GOWN AND SOCK ARE ON. CALL LIGHT WITHIN REACH. BED IN LOWEST POSITION. WILL CONTINUE TO MONITOR
[2019-05-24 04:00] VITALS: BP 158/79
--- NOTE | 2019-05-24 04:12 | NUR ---
I have reviewed this patient and I concur with the Shift Assessment completed by the Licensed Practical Nurse today this shift.
--- NOTE | 2019-05-24 06:50 | NUR ---
IV PULLED OUT TIP INTACT. WILL TRY TO RESITE
--- NOTE | 2019-05-24 07:51 | NUR ---
SITTING UP IN BED IN NO ACUTE DISTRESS. PLAN FOR TODAY REVIEWED WITH PT. ON ROOM AIR. ALERT AND ORIENTED X4. STATES NO NEEDS AT THIS TIME
--- NOTE | 2019-05-24 08:12 | MORECARE ---
CASE MANAGEMENT DISCHARGE SUMMARY PATIENT: ADILENE REDMAN UNIT: [id number] ADM DATE: 05/18/19 AGE: 73 : [birth year] SEX: M ROOM/BED: D.2101 AUTHOR: JAZIEL,DOC PHYSICIAN: REFERRING PHYSICIAN: BESS CHARLES MD DATE OF SERVICE: 05/24/19 Discharge Plan Patient Name: ADILENE REDMAN Facility: [facility]:[place] : 1945 Planned Disposition: Home Anticipated Discharge Date: 05/24/19 Discharge Date: Expected LOS: 6 Initial Reviewer: [id number] Initial Review Date: 05/22/2019 Generated: 05/24/19 9:11 am Comments DCP- Discharge Planning Updated by [email or web address]: Jem Mcfarland on 05/23/19 12:[address] Patient Name: ADILENE REDMAN Encounter No: [id number] : 1945 Primary Insurance: MEDICARE A & B Anticipated DC Date: Planned Disposition: Detention Facility External Planned Provider: TO BE DETERMINED DCP follow-up note: LUIS RECEIVED CALL FROM [facility] WHO INFORMED CM THAT THE INFORMATION PROVIDED INDICATES PHYSICAL THERAPY ASSESSED PT TO HAVE NO SKILLED PHYSICAL THERAPY NEED, [facility] NOT ACCEPT. LUIS MET WITH TREATMENT TEAM AT MULTIDISCIPLINARY TEAM MEETING, WAS INFORMED BY THERAPY SERVICES DIRECTOR THAT PT COULD ADMIT TO ANOTHER [facility] IF OCCUPATIONAL THERAPY EVALUATION, WHICH IS PENDING, INDICATES PT HAS SKILLED NEED. CM CALLED AND SPOKE TO NURSING CONSULTANTS OF [facility] AND [facility], WAS ADVISED THAT PHYSICAL THERAPY NEED CAN STAND ALONE FOR SNF ADMISSION, BUT PT WOULD HAVE TO HAVE OTHER MEDICAL NEED OTHER THAN OCCUPATIONAL THERAPY, SUCH PEG TUBE, WOUND CARE OR IV ANTIBIOTICS. CM CALLED AND SPOKE TO MELANIE [facility] WHO INDICATED SHE THINKS PT WOULD HAVE TO HAVE OTHER NEED OTHER THAN OCCUPATIONAL THERAPY, BUT WILL CHECK TO SEE IF THEY MAY CONSIDER. CM WAITING ON OCCUPATIONAL THERAPY EVALUATION AND WILL SPEAK TO PT REGARDING OPTIONS WHEN PT'S DISCHARGE TREATMENT NEEDS ARE KNOWN. Jem Mcfarland, CASE MANAGEMENT Appended by Jem Mcfarland on 05/23/2019 13:43 VEHICLE FUEL SYSTEMS CONVERTER: CM SPOKE TO PT'S DAUGHTER VIA PHONE AND DISCUSSED PHYSICAL THERAPY RESULTS; PT'S DAUGHTER STATES THAT PT HAS TOLD HER THAT HE DOES NOT WANT TO GO TO REHAB ANYWAY AND WILL BE GOING TO HER HOME AT DISCHARGE. PT DOES NOT CURRENTLY HAVE PRIMARY DOCTOR TO FOLLOW H OME HEALTH ORDERS. PT'S DAUGHTER DENIES NEEDS OTHER THAN A WALKER FOR PT TO USE AT HOME AND SHE WILL GET HIM ANY NEEDED MEDICAL EQUIOPMENT FROM THE [place] LOAN CLOSET. PT'S DAUGHTER PLANS TO TAKE PT TO HER HOME AT DISCHARGE, DENIES DISCHARGE NEEDS AT THIS TIME, SHE WILL BE TRANSPORTING PT TO HER HOME AT DISCHARGE. CM TO FOLLOW AND ASSIST IF NEEDED. Ray JORGENSEN ASE MANAGEMENT DCP- Discharge Planning Updated by [id number]: Jem Mcfarland on 05/22/19 4:[address] Patient Name: ADILENE REDMAN Admission Status: ER Accout number: [id number] Admission Date: 05-18-2019 : 1945 Admission Diagnosis: Attending: BESS CHARLES Current LOS: 4 Anticipated DC Date: Planned Disposition: Detention Facility Primary Insurance: MEDICARE A & B PLANNED EXERNAL PROVIDER PREFERENCE: [facility], MEDICARE REHAB BED Discharge Planning Comments: CM MET WITH PT AND EX IN ROOM TO DISCUSS DISCHARGE PLANNING AND NEEDS. ADILENE REDMAN provided verbal consent to discuss current and ongoing needs with/in the presence of: EX JOSSUE AND DAUGHTER LISANDRA. PT REPORTS LIVING AT HOME INDEPENDENTLY AND ALONE. PT HAS NO MEDICAL EQUIPMENT AND NO OUTSIDE SERVICES ASSISTING IN THE HOME. CM DISCUSSED AVAILABILITY OF HOME HEALTH, REHAB SERVICES AND MEDICAL EQUIPMENT. PT WANTS REHAB AT [facility], CHOICE SIGNED. PT HAD HIS EX CALL HIS DAUGHTER, QUESTIONS ANSWERED, SHE IS ALSO IN AGREEMENT WITH REHAB AT [facility] AND WILL ASSIST WITH PAPERWORK AT THE REHAB IF NEEDED. PT REPROTS HE WAS DRINKING A PINT TO A FIFTH OF GRADY LOIS DAILY, BUT STOPPED WHEN HE CAME TO THE HOSPITAL AND WILL NOT DRINK AGAIN. PT DENIES NEED FOR INPATIENT ALCOHOL ABUSE PROGRAM AND DENIES NEED OF COMMUNITY SUPPORT GROUP INFORMATION. IMPORTANT MESSAGE FROM MEDICARE PROVIDED AND EXPLAINED. CM TO SEND REFERRAL FOR REHAB SERVICES TO [facility] SOON POSSIBLE. Damascener: Jem Mcfarland Appended by Jem Mcfarland on 05/22/2019 17:20 VEHICLE FUEL SYSTEMS CONVERTER: CM FAXED REFERRAL TO [facility], . CM WAITING ADMISSION DETERMINATION FROM [facility] FOR REHAB SERVICES. JEM MCFARLAND, CASE MANAGEMENT DCPIA - Discharge Planning Initial Assessment Updated by [id number]: Jem Mcfarland on 05/22/19 5:02 pm * Is the patient Alert and Oriented? Yes * How many steps to enter\exit or inside your home? NONE * PCP DR. CROSS * Pharmacy [facility] [place] OR [employer], [address] * Preadmission Environment Home Alone * ADLs Independent * Equipment None * Other Equipment NO MEDICAL EQUIPMENT PROVIDER PREFERENCE * List name and contact numbers for known caregivers / representatives who currently or will assist patient after discharge: LISANDRA HANSEN, DTR, JOSSUE REDMAN, EX , * Verbal permission to speak to the caregivers and representatives has been obtained from the patient. Yes * Community resources currently utilized None * Please name any agencies selected above. NONE * Additional services required to return to the preadmission environment? Yes * Can the patient safely return to the preadmission environment? Yes * Has this patient been hospitalized within the prior 30 days at any hospital? No Coverage Notice Reviewer: LA Mcfarland Notice Issued Date-Time: 05/22/2019 13:30 Notice Type: IM Discharge Notice Notice Delivered To: Patient Relationship to Patient: Railroad Baggage Porter Name: Delivery Method: HAND - Hand Delivered Nano Days: Prior Verbal Notification: Recipient Understood Notice: Yes Recipient Signature: Yes Med Rec Note Co-signed by Attending: Coverage Notice Comment: Reviewer: [id number] Mcfarland Notice Issued Date-Time: 05/22/2019 13:30 Notice Type: Patient Choice Letter Notice Delivered To: Patient Relationship to Patient: Railroad Baggage Porter Name: Delivery Method: HAND - Hand Delivered Nano Days: Prior Verbal Notification: Recipient Understood Notice: Yes Recipient Signature: Yes Med Rec Note Co-signed by Attending: Coverage Notice Comment: K[facility]I OBANDO Last DP export: 05/23/19 12:48 p Patient Name: ADILENE REDMAN Page [phone] at 0812 All edits/amendments must be made on the electronic document DICTATION DATE: 05/24/19810 EFFICIENCY MANAGER: SENDY 05/24/19810 RPT#: [id number] DC DATE: STATUS: ADM IN [facility] [address] [facility] [address] END OF REPORT
[2019-05-24 08:48] VITALS: BP 165/91
[2019-05-24 10:34] LABS: ANION GAP 13.8 mmol/L (8-16); CARBON DIOXIDE 28.3 mmol/L (21.0-32.0); CREATININE - SERUM 1.6 mg/dL (0.6-1.3); MAGNESIUM - SERUM 1.1 mg/dL (1.8-2.4); POTASSIUM - SERUM 4.1 mmol/L (3.5-5.1)
[2019-05-24 10:36] LABS: BASOPHILS 0.1 % (0-2); EOSINOPHILS 1.9 % (0-7); HEMATOCRIT 34.4 % (42.0-54.0); HEMOGLOBIN 11.3 g/dL (13.5-17.5); LYMPHOCYTES 17.9 % (15-50); MCHC 32.8 g/dL (31.0-37.0); MCV 100.6 fL (80.0-100.0); MEAN PLATELET VOLUME 11.7 fL (7.4-10.4); MONOCYTES 6.8 % (2-11); NEUTROPHILS 72.3 % (40-80); PLATELET COUNT 104 10x3/uL (130-400); RBC 3.42 10x6/uL (4.20-6.10); RDW 13.6 % (11.5-14.5); WBC 7.2 10x3/uL (4.8-10.8)
--- NOTE | 2019-05-24 11:24 | NUR ---
IV RESTARTED IN RIGHT HAND WITH 22 G X 1 ATTEMPT. PT TOLERATED WELL AND FLUIDS NOW INFUSING WELL.
--- NOTE | 2019-05-24 12:56 | NUR ---
Nutrition Follow-up: Eating well. Denies N/V/C/D. Diet: Cardiac Diabetic PO intake: 86% avg x 7 meals Wt: 264.4# (05/18) Last BM: 05/23 Labs noted: Glu 175, Mg 1.1 Meds noted: Humulin, Miralax, LR @ 75, MagOx -Continue current diet as tolerated. -Need new wt. -RD following.
--- NOTE | 2019-05-24 13:43 | NUR ---
REHAB PRESCREENING Rehab referral received and chart reviewed. According to PT and OT notes, Mr. Barajas has had a decline in condition. He does have a rehab diagnosis and medical need for ARU as well. Rehab will be happy to accept this patient if he is willing to participate in the required 3 hours of therapy. He will be ready for admission when his physicians feel he is appropriate for discharge. Thank you for this referral! Ondina Oshea, WATER CONSERVATION SPECIALIST Rehab PD
[2019-05-24 13:45] VITALS: BP 152/77
--- NOTE | 2019-05-24 14:04 | MORECARE ---
CASE MANAGEMENT DISCHARGE SUMMARY PATIENT: ADILENE REDMAN UNIT: [id number] ADM DATE: 05/18/19 AGE: 73 : [birth year] SEX: M ROOM/BED: D.2101 AUTHOR: JAZIEL,DOC PHYSICIAN: REFERRING PHYSICIAN: BESS CHARLES MD DATE OF SERVICE: 05/24/19 Discharge Plan Patient Name: ADILENE REDMAN Facility: [facility]:[place] : 1945 Planned Disposition: Inpatient Rehab Anticipated Discharge Date: 05/25/19 Discharge Date: Expected LOS: 7 Initial Reviewer: [id number] Initial Review Date: 05/22/2019 Generated: 05/24/19 3:04 pm Comments DCP- Discharge Planning Updated by [email or web address]: Jem Mcfarland on 05/23/19 12:[address] Patient Name: ADILENE REDMAN Encounter No: [id number] : 1945 Primary Insurance: MEDICARE A & B Anticipated DC Date: Planned Disposition: Long Term Facility External Planned Provider: TO BE DETERMINED DCP follow-up note: LUIS RECEIVED CALL FROM GUILLERMINA MEJIA [facility] WHO INFORMED CM THAT THE INFORMATION PROVIDED INDICATES PHYSICAL THERAPY ASSESSED PT TO HAVE NO SKILLED PHYSICAL THERAPY NEED, [facility] NOT [facility]PT. LUIS MET WITH TREATMENT TEAM AT MULTIDISCIPLINARY TEAM MEETING, WAS INFORMED BY THERAPY SERVICES DIRECTOR THAT PT COULD ADMIT TO ANOTHER ASSISTED IF OCCUPATIONAL THERAPY EVALUATION, WHICH IS PENDING, INDICATES PT HAS SKILLED NEED. CM CALLED AND SPOKE TO NURSING CONSULTANTS OF [facility] AND [facility], WAS ADVISED THAT PHYSICAL THERAPY NEED CAN STAND ALONE FOR SNF ADMISSION, BUT PT WOULD HAVE TO HAVE OTHER MEDICAL NEED OTHER THAN OCCUPATIONAL THERAPY, SUCH PEG TUBE, WOUND CARE OR IV ANTIBIOTICS. CM CALLED AND SPOKE TO MELANIE [facility] WHO INDICATED SHE THINKS PT WOULD HAVE TO HAVE OTHER NEED OTHER THAN OCCUPATIONAL THERAPY, BUT WILL CHECK TO SEE IF THEY MAY CONSIDER. CM WAITING ON OCCUPATIONAL THERAPY EVALUATION AND WILL SPEAK TO PT REGARDING OPTIONS WHEN PT'S DISCHARGE TREATMENT NEEDS ARE KNOWN. Jem Mcfarland, CASE MANAGEMENT Appended by Jem Mcfarland on 05/23/2019 13:43 SENIOR INTERACTION DESIGNER: CM SPOKE TO PT'S DAUGHTER VIA PHONE AND DISCUSSED PHYSICAL THERAPY RESULTS; PT'S DAUGHTER STATES THAT PT HAS TOLD HER THAT HE DOES NOT WANT TO GO TO REHAB ANYWAY AND WILL BE GOING TO HER HOME AT DISCHARGE. PT DOES NOT CURRENTLY HAVE PRIMARY DOCTOR TO FOLLOW H OME HEALTH ORDERS. PT'S DAUGHTER DENIES NEEDS OTHER THAN A WALKER FOR PT TO USE AT HOME AND SHE WILL GET HIM ANY NEEDED MEDICAL EQUIOPMENT FROM THE [place] [employer] CLOSET. PT'S DAUGHTER PLANS TO TAKE PT TO HER HOME AT DISCHARGE, DENIES DISCHARGE NEEDS AT THIS TIME, SHE WILL BE TRANSPORTING PT TO HER HOME AT DISCHARGE. CM TO FOLLOW AND ASSIST IF NEEDED. Ray JORGENSEN ASE MANAGEMENT DCP- Discharge Planning Updated by [id number]: Jem Mcfarland on 05/22/19 4:[address] Patient Name: ADILENE REDMAN Admission Status: ER Accout number: [id number] Admission Date: 05-18-2019 : 1945 Admission Diagnosis: Attending: BESS CHARLES Current LOS: 4 Anticipated DC Date: Planned Disposition: Long Term Facility Primary Insurance: MEDICARE A & B PLANNED EXERNAL PROVIDER PREFERENCE: [facility] MED[facility] REHAB BED Discharge Planning Comments: CM MET WITH PT AND EX IN ROOM TO DISCUSS DISCHARGE PLANNING AND NEEDS. ADILENE REDMAN provided verbal consent to discuss current and ongoing needs with/in the presence of: EX JOSSUE AND DAUGHTER LISANDRA. PT REPORTS LIVING AT HOME INDEPENDENTLY AND ALONE. PT HAS NO MEDICAL EQUIPMENT AND NO OUTSIDE SERVICES ASSISTING IN THE HOME. CM DISCUSSED AVAILABILITY OF HOME HEALTH, REHAB SERVICES AND MEDICAL EQUIPMENT. PT WANTS REHAB AT [facility], CHOICE SIGNED. PT HAD HIS EX CALL HIS DAUGHTER, QUESTIONS ANSWERED, SHE IS ALSO IN AGREEMENT WITH REHAB AT [facility] AND WILL ASSIST WITH PAPERWORK AT THE REHAB IF NEEDED. PT REPROTS HE WAS DRINKING A PINT TO A FIFTH OF GRADY LOIS DAILY, BUT STOPPED WHEN HE CAME TO THE HOSPITAL AND WILL NOT DRINK AGAIN. PT DENIES NEED FOR INPATIENT ALCOHOL ABUSE PROGRAM AND DENIES NEED OF COMMUNITY SUPPORT GROUP INFORMATION. IMPORTANT MESSAGE FROM MEDICARE PROVIDED AND EXPLAINED. CM TO SEND REFERRAL FOR REHAB SERVICES TO [facility] SOON POSSIBLE. Dividing Machine Operator Helper: Jem Mcfarland Appended by Jem Mcfarland on 05/22/2019 17:20 SENIOR INTERACTION DESIGNER: CM FAXED REFERRAL TO [facility], . CM WAITING ADMISSION DETERMINATION FROM [facility] FOR REHAB SERVICES. JEM MCFARLAND, CASE MANAGEMENT DCPIA - Discharge Planning Initial Assessment Updated by [id number]: Jem Mcfarland on 05/22/19 5:02 pm * Is the patient Alert and Oriented? Yes * How many steps to enter\exit or inside your home? NONE * PCP DR. CROSS * Pharmacy [facility], [facility] OR [employer], [facility] [address] [facility] * Preadmission Environment Home Alone * ADLs Independent * Equipment None * Other Equipment NO MEDICAL EQUIPMENT PROVIDER PREFERENCE * List name and contact numbers for known caregivers / representatives who currently or will assist patient after discharge: LISANDRA HANSEN, DTR, JOSSUE REDMAN, EX , * Verbal permission to speak to the caregivers and representatives has been obtained from the patient. Yes * Community resources currently utilized None * Please name any agencies selected above. NONE * Additional services required to return to the preadmission environment? Yes * Can the patient safely return to the preadmission environment? Yes * Has this patient been hospitalized within the prior 30 days at any hospital? No Coverage Notice Reviewer: [id number] Mcfarland Notice Issued Date-Time: 05/22/2019 13:30 Notice Type: IM Discharge Notice Notice Delivered To: Patient Relationship to Patient: Business Control Manager Name: Delivery Method: HAND - Hand Delivered Nano Days: Prior Verbal Notification: Recipient Understood Notice: Yes Recipient Signature: Yes Med Rec Note Co-signed by Attending: Coverage Notice Comment: Reviewer: [id number] Mcfarland Notice Issued Date-Time: 05/22/2019 13:30 Notice Type: Patient Choice Letter Notice Delivered To: Patient Relationship to Patient: Business Control Manager Name: Delivery Method: HAND - Hand Delivered Nano Days: Prior Verbal Notification: Recipient Understood Notice: Yes Recipient Signature: Yes Med Rec Note Co-signed by Attending: Coverage Notice Comment: [facility] OBANDO Reviewer: [id number] Azucena Mcfarland Notice Issued Date-Time: 05/24/2019 12:25 Notice Type: Patient Choice Letter Notice Delivered To: Patient Relationship to Patient: Business Control Manager Name: Delivery Method: HAND - Hand Delivered Nano Days: Prior Verbal Notification: Recipient Understood Notice: Yes Recipient Signature: Yes Med Rec Note Co-signed by Attending: Coverage Notice Comment: [facility] Last DP export: 05/24/19 7:12 a Patient Name: ADILENE REDMAN Page [phone] at 1404 All edits/amendments must be made on the electronic document DICTATION DATE: 05/24/191403 RN TEAM LEADER: SENDY 05/24/191403 RPT#: [id number] DC DATE: STATUS: ADM IN [facility] [address] [place] [address] END OF REPORT
--- NOTE | 2019-05-24 14:18 | MORECARE ---
CASE MANAGEMENT DISCHARGE SUMMARY PATIENT: ADILENE REDMAN UNIT: [id number] ADM DATE: 05/18/19 AGE: 73 : [birth year] SEX: M ROOM/BED: D.2101 AUTHOR: JAZIEL,DOC PHYSICIAN: REFERRING PHYSICIAN: BESS CHARLES MD DATE OF SERVICE: 05/24/19 Discharge Plan Patient Name: ADILENE REDMAN Facility: [facility]:[place] : 1945 Planned Disposition: Inpatient Rehab Anticipated Discharge Date: 05/25/19 Discharge Date: Expected LOS: 7 Initial Reviewer: [email or web address] Initial Review Date: 05/22/2019 Generated: 05/24/19 3:17 pm Comments DCP- Discharge Planning Updated by [id number]: Jem Mcfarland on 05/24/19 1:[address] Patient Name: ADILENE REDMAN Encounter No: [id number] : 1945 Primary Insurance: MEDICARE A & B Anticipated DC Date: 05-25-2019 Planned Disposition: Inpatient Rehab External Planned Provider: [facility] INPATIENT REHAB DCP follow-up note: CM SPOKE TO CARE TEAM AT MULTIDISCIPLINARY TEAM MEETING, SHARI NOTED THAT PT DOES NEED SKILLED REHAB. CM SPOKE TO PT IN ROOM, DISCUSSED [facility] DECLINING PT, DISCUSSED AVAILABILITY OF REHAB SERVICES, LOCATIONS AND PROVIDERS. PT WOULD LIKE REHAB AT [place] AND DID NOT WANT TO CONSIDER ANY INTERMEDIATE FACILITY OTHER THAN [facility]. CHOICE SIGNED. CM SPOKE TO PT'S DAUGHTER VIA PHONE WHO IS ALSO IN AGREEMENT WITH PLAN FOR REHAB AT [facility]. PT'S DAUGHTER PLANS TO CALL [facility] AND FIND OUT WHY THEY DECLINED PT. CM WAITING INPATIENT REHAB PRESCREENING AND ADMISSION DETERMINATION. Jem Mcfarland CASE KATLYN DCP- Discharge Planning Updated by [id number]: Jem Mcfarland on 05/23/19 12:[address] Patient Name: ADILENE REDMAN Encounter No: [id number] : 1945 Primary Insurance: MEDICARE A & B Anticipated DC Date: Planned Disposition: Penitentiary Facility External Planned Provider: TO BE DETERMINED DCP follow-up note: CM RECEIVED [facility] FROM [facility] WHO INFORMED CM THAT THE INFORMATION PROVIDED INDICATES PHYSICAL THERAPY ASSESSED PT TO HAVE NO SKILLED PHYSICAL THERAPY NEED, [facility] WILL NOT ACCEPT. CM MET WITH TREATMENT TEAM AT MULTIDISCIPLINARY TEAM MEETING, WAS INFORMED BY THERAPY SERVICES DIRECTOR THAT PT COULD ADMIT TO ANOTHER INTERMEDIATE IF OCCUPATIONAL THERAPY EVALUATION, WHICH IS PENDING, INDICATES PT HAS SKILLED NEED. CM CALLED AND SPOKE TO NURSING CONSULTANTS OF [facility] AND [facility], WAS ADVISED THAT PHYSICAL THERAPY NEED CAN STAND ALONE FOR SNF ADMISSION, BUT PT WOULD HAVE TO HAVE OTHER MEDICAL NEED OTHER THAN OCCUPATIONAL THERAPY, SUCH PEG TUBE, WOUND CARE OR IV ANTIBIOTICS. CM CALLED AND SPOKE TO MELANIE [facility] WHO INDICATED SHE THINKS PT WOULD HAVE TO HAVE OTHER NEED OTHER THAN OCCUPATIONAL THERAPY, BUT WILL CHECK TO SEE IF THEY MAY CONSIDER. CM WAITING ON OCCUPATIONAL THERAPY EVALUATION AND WILL SPEAK TO PT REGARDING OPTIONS WHEN PT'S DISCHARGE TREATMENT NEEDS ARE KNOWN. Jem Mcfarland, CASE MANAGEMENT Appended by Jem Mcfarland on 05/23/2019 13:43 WELDER MANUFACTURE: CM SPOKE TO PT'S DAUGHTER VIA PHONE AND DISCUSSED PHYSICAL THERAPY RESULTS; PT'S DAUGHTER STATES THAT PT HAS TOLD HER THAT HE DOES NOT WANT TO GO TO REHAB ANYWAY AND WILL BE GOING TO HER HOME AT DISCHARGE. PT DOES NOT CURRENTLY HAVE PRIMARY DOCTOR TO FOLLOW [facility] HEALTH ORDERS. PT'S DAUGHTER DENIES NEEDS OTHER THAN A WALKER FOR PT TO USE AT HOME AND SHE WILL GET HIM ANY NEEDED MEDICAL EQUIOPMENT FROM THE [facility] CLOS[facility]. PT'S DAUGHTER PLANS TO TAKE PT TO HER HOME AT DISCHARGE, DENIES DISCHARGE NEEDS AT THIS TIME, SHE WILL BE TRANSPORTING PT TO HER HOME AT DISCHARGE. CM TO FOLLOW AND ASSIST IF NEEDED. Ray JORGENSEN ASE MANAGEMENT DCP- Discharge Planning Updated by [id number]: Jem Mcfarland on 05/22/19 4:[address] Patient Name: ADILENE REDMAN Admission Status: ER Accout number: [id number] Admission Date: 05-18-2019 : 1945 Admission Diagnosis: Attending: BESS CHARLES Current LOS: 4 Anticipated DC Date: Planned Disposition: Penitentiary Facility Primary Insurance: MEDICARE A & B PLANNED EXERNAL PROVIDER PREFERENCE: [facility], MEDICARE REHAB BED Discharge Planning Comments: CM MET WITH PT AND EX IN ROOM TO DISCUSS DISCHARGE PLANNING AND NEEDS. ADILENE REDMAN provided verbal consent to discuss current and ongoing needs with/in the presence of: EX JOSSUE AND DAUGHTER LISANDRA. PT REPORTS LIVING AT HOME INDEPENDENTLY AND ALONE. PT HAS NO MEDICAL EQUIPMENT AND NO OUTSIDE SERVICES ASSISTING IN THE HOME. CM DISCUSSED AVAILABILITY OF HOME HEALTH, REHAB SERVICES AND MEDICAL EQUIPMENT. PT WANTS REHAB AT [facility], CHOICE SIGNED. PT HAD HIS EX CALL HIS DAUGHTER, QUESTIONS ANSWERED, SHE IS ALSO IN AGREEMENT WITH REHAB AT [facility] AND WILL ASSIST WITH PAPERWORK AT THE REHAB IF NEEDED. PT REPROTS HE WAS DRINKING A PINT TO A FIFTH OF GR[place] LOIS DAILY, BUT STOPPED WHEN HE CAME TO THE HOSPITAL AND WILL NOT DRINK AGAIN. PT DENIES NEED FOR INPATIENT ALCOHOL ABUSE PROGRAM AND DENIES NEED OF COMMUNITY SUPPORT GROUP INFORMATION. IMPORTANT MESSAGE FROM MEDICARE PROVIDED AND EXPLAINED. CM TO SEND REFERRAL FOR REHAB SERVICES TO [facility] SOON POSSIBLE. Automobile Bumper Straightener: Jem Mcfarland Appended by Jem Mcfarland on 05/22/2019 17:20 WELDER MANUFACTURE: CM FAXED REFERRAL TO [facility], . CM WAITING ADMISSION DETERMINATION FROM [facility] FOR REHAB SERVICES. JEM MCFARLAND, CASE MANAGEMENT DCPIA - Discharge Planning Initial Assessment Updated by [id number]: Jem Mcfarland on 05/22/19 5:02 pm * Is the patient Alert and Oriented? Yes * How many steps to enter\exit or inside your home? NONE * PCP DR. CROSS * Pharmacy [facility] OR [facility] * Preadmission Environment Home Alone * ADLs Independent * Equipment None * Other Equipment NO MEDICAL EQUIPMENT PROVIDER PREFERENCE * List name and contact numbers for known caregivers / representatives who currently or will assist patient after discharge: LISANDRA JADE, DTR, JOSSUE REDMAN, EX , * Verbal permission to speak to the caregivers and representatives has been obtained from the patient. Yes * Community resources currently utilized None * Please name any agencies selected above. NONE * Additional services required to return to the preadmission environment? Yes * Can the patient safely return to the preadmission environment? Yes * Has this patient been hospitalized within the prior 30 days at any hospital? No Coverage Notice Reviewer: [id number] - Jem Mcfarland Notice Issued Date-Time: 05/22/2019 13:30 Notice Type: IM Discharge Notice Notice Delivered To: Patient Relationship to Patient: Loin Trimmer Name: Delivery Method: HAND - Hand Delivered Nano Days: Prior Verbal Notification: Recipient Understood Notice: Yes Recipient Signature: Yes Med Rec Note Co-signed by Attending: Coverage Notice Comment: Reviewer: LA Mcfarland Notice Issued Date-Time: 05/22/2019 13:30 Notice Type: Patient Choice Letter Notice Delivered To: Patient Relationship to Patient: Loin Trimmer Name: Delivery Method: HAND - Hand Delivered Nano Days: Prior Verbal Notification: Recipient Understood Notice: Yes Recipient Signature: Yes Med Rec Note Co-signed by Attending: Coverage Notice Comment: [facility] Reviewer: [id number] Mcfarland Notice Issued Date-Time: 05/24/2019 12:25 Notice Type: Patient Choice Letter Notice Delivered To: Patient Relationship to Patient: Loin Trimmer Name: Delivery Method: HAND - Hand Delivered Nano Days: Prior Verbal Notification: Recipient Understood Notice: Yes Recipient Signature: Yes Med Rec Note Co-signed by Attending: Coverage Notice Comment: [facility] INPATIENT REHAB Last DP export: 05/24/19 1:04 p Patient Name: ADILENE REDMAN Page 21855 at 1418 All edits/amendments must be made on the electronic document DICTATION DATE: 05/24/19 1417 CRM MARKETING ANALYST: SENDY 05/24/19 141 RPT#: [id number] DC DATE: STATUS: ADM IN [facility] [address] [place] [address] END OF REPORT
[2019-05-24] MEDS ORDERED: COZAAR50 MG PO (14:21)
[2019-05-24] MEDS ORDERED: KLONOPIN0.5 MG PO (14:23)
[2019-05-24] MEDS ORDERED: LIBRIUM25 MG PO (14:23)
[2019-05-24] MEDS ORDERED: MIRALAX17 GM PO (14:24)
[2019-05-24] MEDS ORDERED: HUMULIN R100 UNIT/1 SC (14:24)
[2019-05-24] MEDS ORDERED: LEVOFLOXAC750 MG/150 IV (14:26)
--- NOTE | 2019-05-24 15:20 | MORECARE ---
CASE MANAGEMENT DISCHARGE SUMMARY PATIENT: ADILENE REDMAN UNIT: [id number] ADM DATE: 05/18/19 AGE: 73 : [birth year] SEX: M ROOM/BED: D.2101 AUTHOR: JAZIEL,DOC PHYSICIAN: REFERRING PHYSICIAN: BESS CHARLES MD DATE OF SERVICE: 05/24/19 Discharge Plan Patient Name: ADILENE REDMAN Facility: [facility]:[place] : 1945 Planned Disposition: Inpatient Rehab Anticipated Discharge Date: 05/24/19 Discharge Date: Expected LOS: 6 Initial Reviewer: [id number] Initial Review Date: 05/22/2019 Generated: 05/24/19 4:19 pm Comments DCP- Discharge Planning Updated by [id number]: Jem Mcfarland on 05/24/19 2:[address] Patient Name: ADILENE REDMAN Encounter No: [id number] : 1945 Primary Insurance: MEDICARE A & B Anticipated DC Date: 05-25-2019 Planned Disposition: Inpatient Rehab External Planned Provider: [facility] INPATIENT REHAB DCP follow-up note: CM SPOKE TO CARE TEAM AT MULTIDISCIPLINARY TEAM MEETING, SHARI NOTED THAT PT DOES NEED SKILLED REHAB. CM SPOKE TO PT IN ROOM, DISCUSSED [facility] DECLINING PT, DISCUSSED AVAILABILITY OF REHAB SERVICES, LOCATIONS AND PROVIDERS. PT WOULD LIKE REHAB AT [facility] AND DID NOT WANT TO CONSIDER ANY FPC FACILITY OTHER THAN [facility]. CHOICE SIGNED. CM SPOKE TO PT'S DAUGHTER VIA PHONE WHO IS ALSO IN AGREEMENT WITH PLAN FOR REHAB AT [facility]. PT'S DAUGHTER PLANS TO CALL [facility] AND FIND OUT WHY THEY DECLINED PT. CM WAITING INPATIENT REHAB PRESCREENING AND ADMISSION DETERMINATION. Jem Mcfarland, CASE MANAGEMENT Appended by Jem Mcfarland on 05/24/2019 15:11 MARBLE POLISHER: CM SPOKE TO MARIE OF INPATIENT REHAB, THEY PLAN TO ACCEPT WHEN STABLE FOR REHAB. PT NOTIFIED, IN AGREEMENT WITH DISCHARGE TO INPATIENT REHAB. PT'S DAUGHTER NOTIFIED WHO IS IN AGREEMENT WITH INPATIENT REHAB AT [facility]. CM SPOKE TO OLIVER LYLE WHO INFORMED CM THAT PT IS READY TO DISCHARGE AND PT WILL DISCHARGE TO REHAB TODAY. CM NOTIFIED MARIE OF INPATIENT REHAB AT [facility]. [facility] INPATIENT REHAB TO CONTACT MED 2 NURSE WITH ROOM NUMBER WHEN READY TO ACCEPT PT AND NURSE REPORT. MICHELLE JORGENSEN MANAGEMENT DCP- Discharge Planning Updated by [id number]: Jem Mcfarland on 05/23/19 12:[address] Patient Name: ADILENE REDMAN Encounter No: [id number] : 1945 Primary Insurance: MEDICARE A & B Anticipated DC Date: Planned Disposition: Shelter Facility External Planned Provider: TO BE DETERMINED DCP follow-up note: CM RECEIVED CALL FROM GUILLERMINA MEJIA [facility] WHO INFORMED CM THAT THE INFORMATION PROVIDED INDICATES PHYSICAL THERAPY ASSESSED PT TO HAVE NO SKILLED PHYSICAL THERAPY NEED, [facility] WILL NOT ACCEPT. CM MET WITH TREATMENT TEAM AT MULTIDISCIPLINARY TEAM MEETING, WAS INFORMED BY THERAPY SERVICES DIRECTOR THAT PT COULD ADMIT TO ANOTHER FPC IF OCCUPATIONAL THERAPY EVALUATION, WHICH IS PENDING, INDICATES PT HAS SKILLED NEED. CM CALLED AND SPOKE TO NURSING CONSULTANTS OF [facility] AND [facility], WAS ADVISED THAT PHYSICAL THERAPY NEED CAN STAND ALONE FOR SNF ADMISSION, BUT PT WOULD HAVE TO HAVE OTHER MEDICAL NEED OTHER THAN OCCUPATIONAL THERAPY, SUCH PEG TUBE, WOUND CARE OR IV ANTIBIOTICS. CM CALLED AND SPOKE TO MELANIE [facility] WHO INDICATED SHE THINKS PT WOULD HAVE TO HAVE OTHER NEED OTHER THAN OCCUPATIONAL THERAPY, BUT WILL CHECK TO SEE IF THEY MAY CONSIDER. CM WAITING ON OCCUPATIONAL THERAPY EVALUATION AND WILL SPEAK TO PT REGARDING OPTIONS WHEN PT'S DISCHARGE TREATMENT NEEDS ARE KNOWN. Jem Mcfarland, CASE MANAGEMENT Appended by Jem Mcfarland on 05/23/2019 13:43 MARBLE POLISHER: CM SPOKE TO PT'S DAUGHTER VIA PHONE AND DISCUSSED PHYSICAL THERAPY RESULTS; PT'S DAUGHTER STATES THAT PT HAS TOLD HER THAT HE DOES NOT WANT TO GO TO REHAB ANYWAY AND WILL BE GOING TO HER HOME AT DISCHARGE. PT DOES NOT CURRENTLY HAVE PRIMARY DOCTOR TO FOLLOW [facility] HEALTH ORDERS. PT'S DAUGHTER DENIES NEEDS OTHER THAN A WALKER FOR PT TO USE AT HOME AND SHE WILL GET HIM ANY NEEDED MEDICAL EQUIOPMENT FROM THE [facility] CLOSET. PT'S DAUGHTER PLANS TO TAKE PT TO HER HOME AT DISCHARGE, DENIES DISCHARGE NEEDS AT THIS TIME, SHE WILL BE TRANSPORTING PT TO HER HOME AT DISCHARGE. CM TO FOLLOW AND ASSIST IF NEEDED. Ray JORGENSEN ASE MANAGEMENT DCP- Discharge Planning Updated by [id number]: Jem Mcfarland on 05/22/19 4:[address] Patient Name: ADILENE REDMAN Admission Status: ER Accout number: [id number] Admission Date: 05-18-2019 : 1945 Admission Diagnosis: Attending: BESS CHARLES Current LOS: 4 Anticipated DC Date: Planned Disposition: Shelter Facility Primary Insurance: MEDICARE A & B PLANNED EXERNAL PROVIDER PREFERENCE: [facility] MEDICARE REHAB BED Discharge Planning Comments: CM MET WITH PT AND EX IN ROOM TO DISCUSS DISCHARGE PLANNING AND NEEDS. ADILENE REDMAN provided verbal consent to discuss current and ongoing needs with/in the presence of: EX JOSSUE AND DAUGHTER LISANDRA. PT REPORTS LIVING AT HOME INDEPENDENTLY AND ALONE. PT HAS NO MEDICAL EQUIPMENT AND NO OUTSIDE SERVICES ASSISTING IN THE HOME. CM DISCUSSED AVAILABILITY OF HOME HEALTH, REHAB SERVICES AND MEDICAL EQUIPMENT. PT WANTS REHAB AT [facility], CHOICE SIGNED. PT HAD HIS EX CALL HIS DAUGHTER, QUESTIONS ANSWERED, SHE IS ALSO IN AGREEMENT WITH REHAB AT [facility] AND WILL ASSIST WITH PAPERWORK AT THE REHAB IF NEEDED. PT REPROTS HE WAS DRINKING A PINT TO A FIFTH OF GR[place] LOIS DAILY, BUT STOPPED WHEN HE CAME TO THE HOSPITAL AND WILL NOT DRINK AGAIN. PT DENIES NEED FOR INPATIENT ALCOHOL ABUSE PROGRAM AND DENIES NEED OF COMMUNITY SUPPORT GROUP INFORMATION. IMPORTANT MESSAGE FROM MEDICARE PROVIDED AND EXPLAINED. CM TO SEND REFERRAL FOR REHAB SERVICES TO [facility] SOON POSSIBLE. Airline Dispatcher: Jem Mcfarland Appended by Jem Mcfarland on 05/22/2019 17:20 MARBLE POLISHER: CM FAXED REFERRAL TO [facility], . CM WAITING ADMISSION DETERMINATION FROM [facility] FOR REHAB SERVICES. JEM MCFARLAND, CASE MANAGEMENT DCPIA - Discharge Planning Initial Assessment Updated by [id number]: Jem Mcfarland on 05/22/19 5:02 pm * Is the patient Alert and Oriented? Yes * How many steps to enter\exit or inside your home? NONE * PCP DR. CROSS * Pharmacy [facility] [place] OR [facility], [address] * Preadmission Environment Home Alone * ADLs Independent * Equipment None * Other Equipment NO MEDICAL EQUIPMENT PROVIDER PREFERENCE * List name and contact numbers for known caregivers / representatives who currently or will assist patient after discharge: LISANDRA HANSEN DTR, JOSSUE REDMAN, EX , * Verbal permission to speak to the caregivers and representatives has been obtained from the patient. Yes * Community resources currently utilized None * Please name any agencies selected above. NONE * Additional services required to return to the preadmission environment? Yes * Can the patient safely return to the preadmission environment? Yes * Has this patient been hospitalized within the prior 30 days at any hospital? No Coverage Notice Reviewer: LA Mcfarland Notice Issued Date-Time: 05/22/2019 13:30 Notice Type: IM Discharge Notice Notice Delivered To: Patient Relationship to Patient: Family Day Carer Name: Delivery Method: HAND - Hand Delivered Nano Days: Prior Verbal Notification: Recipient Understood Notice: Yes Recipient Signature: Yes Med Rec Note Co-signed by Attending: Coverage Notice Comment: Reviewer: LA Mcfarland Notice Issued Date-Time: 05/22/2019 13:30 Notice Type: Patient Choice Letter Notice Delivered To: Patient Relationship to Patient: Family Day Carer Name: Delivery Method: HAND - Hand Delivered Nano Days: Prior Verbal Notification: Recipient Understood Notice: Yes Recipient Signature: Yes Med Rec Note Co-signed by Attending: Coverage Notice Comment: [facility]O Reviewer: [id number] Mcfarland Notice Issued Date-Time: 05/24/2019 12:25 Notice Type: Patient Choice Letter Notice Delivered To: Patient Relationship to Patient: Family Day Carer Name: Delivery Method: HAND - Hand Delivered Nano Days: Prior Verbal Notification: Recipient Understood Notice: Yes Recipient Signature: Yes Med Rec Note Co-signed by Attending: Coverage Notice Comment: [facility] INPATIENT REHAB Last DP export: 05/24/19 1:18 p Patient Name: ADILENE REDMAN Page [phone] at 1520 All edits/amendments must be made on the electronic document DICTATION DATE: 05/24/191518 CASUALTY CLAIMS SUPERVISOR: SENDY 05/24/19 151 RPT#: [id number] DC DATE: STATUS: ADM IN [facility] [address] [place] [address] END OF REPORT
--- NOTE | 2019-05-24 15:45 | NUR ---
DR. PALMER HERE AND CANCELLED DISCHARGE ORDER.
--- NOTE | 2019-05-24 17:15 | NUR ---
OT NOTE: PT COMPLETED SUPINE TO SIT WITH SBA. PT COMPLETED ADL MOB WITH SBA. PT COMPLETED TOILETING WITH SBA, PT STATED HE FEELS UNSTEADY. 4-126 THANK YOU,KRYSTYNA FIGUEROA
--- NOTE | 2019-05-24 18:00 | NUR ---
REPORT CALLED TO REHAB UNIT AND SPOKE WITH JOEL. PT TAKEN TO UNIT VIA W/C WITHOUT INCIDENT. DISCHARGE PAPERS SIGNED BY PTS DAUGHTER WHO IS POA FOR PT. SL REMAINS IN PLACE FOR [facility] THAT IS TO BE CONTINUED. ALL PERSONAL ITEMS TAKEN WITH PT BY THE DAUGHTER.
[2019-05-24 18:27] VITALS: BP 175/90
== END 2019-05-24 18:38 | DRG 872 ==
LOC: D.ER 15:17 → D.M2 21:01 → OBSVTIME 21:01 → D.M2 05-18 10:59
PROVIDERS: Emergency Medicine; Family Medicine; Internal Medicine Hematology & Oncology; ADMIT Internal Medicine Nephrology; ATTEND Internal Medicine Nephrology
DX: A41.9 Sepsis, unspecified organism (principal); N10 Acute pyelonephritis; E44.0 Moderate protein-calorie malnutrition; F17.213 Nicotine dependence, cigarettes, with withdrawal; D61.818 Other pancytopenia; N17.9 Acute kidney failure, unspecified; N39.0 Urinary tract infection, site not specified; N20.0 Calculus of kidney; E83.42 Hypomagnesemia; E11.9 Type 2 diabetes mellitus without complications; I10 Essential (primary) hypertension; F10.10 Alcohol abuse, uncomplicated; Z68.35 Body mass index [BMI] 35.0-35.9, adult

== ENCOUNTER 2019-10-05 13:13 | Inpatient (IN) | payer MEDICARE ==
[~2019-10-05] VITALS: Ht 182.9 cm; Wt 109.1 kg
[~2019-10-05 13:13] MED LIST: BAYER CHEWABLE81 MG PO; COZAAR50 MG PO; DEPAKOTE500 MG PO; GLUCOPHAGE500 MG PO; HUMULIN R100 UNIT/1 SC; KLONOPIN0.5 MG PO; KLONOPIN1 MG PO; LEVOFLOXAC750 MG/150 IV; LIBRIUM25 MG PO; LIPITOR40 MG PO; MIRALAX17 GM PO; SEROQUEL200 MG PO; ZYLOPRIM100 MG PO
[2019-10-05] MEDS ORDERED: MACROBID100 MG PO (13:49)
[2019-10-05] MEDS ORDERED: FOLIC ACID1 MG PO (13:50)
[2019-10-05 13:54] LABS: HEMATOCRIT 35.8 % (42.0-54.0); MCH 30.6 pg (26.0-34.0); MCHC 33.5 g/dL (31.0-37.0); MCV 91.3 fL (80.0-100.0); MEAN PLATELET VOLUME 10.7 fL (7.4-10.4); PLATELET COUNT 82 10x3/uL (130-400); RBC 3.92 10x6/uL (4.20-6.10); RDW 16.2 % (11.5-14.5); WBC 3.6 10x3/uL (4.8-10.8)
[2019-10-05 13:59] VITALS: BP 129/80
[2019-10-05 14:11] LABS: EOSINOPHILS 4 % (0-7); LYMPHOCYTES 52 % (15-50); NEUTROPHILS 41 % (40-80); PLATELET ESTIMATE DECREASED
[2019-10-05 14:13] LABS: ANION GAP 13.7 mmol/L (8-16); CALCIUM 9.5 mg/dL (8.5-10.1); CARBON DIOXIDE 26.5 mmol/L (21.0-32.0); CREATININE - SERUM 1.6 mg/dL (0.6-1.3); POTASSIUM - SERUM 4.2 mmol/L (3.5-5.1); TARGET CELLS OCC
[2019-10-05 14:15] VITALS: BP 129/80; Ht 182.9 cm; Wt 109.1 kg
[2019-10-05 14:19] LABS: ALBUMIN 3.4 g/dL (3.4-5.0); BILIRUBIN - TOTAL 0.35 mg/dL (0.2-1.3); MAGNESIUM - SERUM 1.3 mg/dL (1.8-2.4); PROTEIN - SERUM 7.1 g/dL (6.4-8.2)
--- NOTE | 2019-10-05 14:33 | NUR ---
HE IS CONFUSED, HIS X IS AT THE BEDSIDE. HE USES A CANE, HIS BOTTOM IS RED AND NEEDS TO BE CLEANED. MIRYAM BOYD IS HERE TO ACCESS HIM. THE BED ALARM IS ON AND THE CALL LIGHT IS WITHIN REACH.
[2019-10-05 16:00] VITALS: BP 130/70
[2019-10-05 16:15] LABS: INR 1.05 (0.85-1.17); PROTIME 13.7 SECONDS (11.6-15.0)
[2019-10-05 16:16] LABS: APTT 39.3 SECONDS (22.8-39.4)
--- NOTE | 2019-10-05 17:41 | NUR ---
I have reviewed this patient and I concur with the Shift Assessment completed by the Licensed Practical Nurse today this shift.
--- NOTE | 2019-10-05 20:00 | NUR ---
PATIENT RESTING IN BED WTIH FAMILY AT BEDSIDE. NO S/S OF ACUTE DISTRESS. NO C/O AT THIS TIME. PATIENT IS CONFUSED TO SITUATION AND TIME. PATIENT HAS TELEMETRY ON: 65 NORMAL SINUS. PATIENT HAS A RIGHT FOREARM, BANANA BAG @ 125 ML/HR. IV IS PATENT WITHOUT REDNESS, SWELLING, OR TENDERNESS. PATIENT USES CANE AND PARTIAL ASSISTANCE TO THE BATHROOM. PATIENT IS INCONTENT OF BOWEL AND BLADDER AT TIMES. CALL LIGHT IN PLACE. BED ALARM ON. CALL LIGHT WITHIN REACH.
[2019-10-05 20:55] LABS: BILIRUBIN NEGATIVE (NEGATIVE); GLUCOSE NEGATIVE (NEGATIVE); KETONE NEGATIVE (NEGATIVE); NITRITE NEGATIVE (NEGATIVE); SPECIFIC GRAVITY 1.015 (1.005-1.020); UROBILINOGEN NORMAL (NORMAL)
[2019-10-05 20:58] LABS: BACTERIA FEW /hpf (NEGATIVE); RED CELLS - URINE 0-5 /hpf (0-5); WHITE CELLS - URINE 0-5 /hpf (NEGATIVE)
--- NOTE | 2019-10-06 00:10 | NUR ---
I have reviewed this patient and I concur with the Shift Assessment completed by the Licensed Practical Nurse today this shift.
[2019-10-06 04:00] VITALS: BP 157/77
[2019-10-06 07:16] LABS: HEMATOCRIT 33.1 % (42.0-54.0); HEMOGLOBIN 11.1 g/dL (13.5-17.5); MCH 30.6 pg (26.0-34.0); MCHC 33.5 g/dL (31.0-37.0); MCV 91.2 fL (80.0-100.0); MEAN PLATELET VOLUME 10.8 fL (7.4-10.4); PLATELET COUNT 79 10x3/uL (130-400); RBC 3.63 10x6/uL (4.20-6.10); RDW 15.9 % (11.5-14.5); WBC 2.4 10x3/uL (4.8-10.8)
[2019-10-06 07:25] LABS: ALBUMIN 2.7 g/dL (3.4-5.0); ANION GAP 9.7 mmol/L (8-16); BILIRUBIN - TOTAL 0.26 mg/dL (0.2-1.3); CALCIUM 8.9 mg/dL (8.5-10.1); CARBON DIOXIDE 27.8 mmol/L (21.0-32.0); CREATININE - SERUM 1.6 mg/dL (0.6-1.3); POTASSIUM - SERUM 4.5 mmol/L (3.5-5.1); PROTEIN - SERUM 6.6 g/dL (6.4-8.2)
[2019-10-06 07:26] LABS: MAGNESIUM - SERUM 1.7 mg/dL (1.8-2.4)
[2019-10-06 08:00] VITALS: BP 144/82
--- NOTE | 2019-10-06 08:19 | NUR ---
PT UPRIGHT IN BED UPON ENTERING, ALERT AND ORIENTED X2. MEDICATION GIVEN AT THIS TIME, NO COMPLAINTS. RESTING COMFORTABLY IN BED. DENIES ANY NEEDS. BED IN LOWEST POSITION, BED RAILS X3, CALL LIGHT WITHIN REACH. WILL CONTINUE TO MONITOR.
[2019-10-06 10:37] LABS: EOSINOPHILS 4 % (0-7); LYMPHOCYTES 50 % (15-50); NEUTROPHILS 46 % (40-80); PLATELET ESTIMATE DECREASED
--- NOTE | 2019-10-06 10:37 | NUR ---
ADMINISTERED PRN MAGNESIUM FOR LOW MAG LEVEL, 1.7 AND ASSESSED VITALS, VSS. PT RESTING COMFORTABLY IN BED. DENIES ANY NEEDS. BED IN LOWEST POSITION, BED RAILS X3, CALL LIGHT WITHIN REACH. WILL CONTINUE TO MONITOR.
[2019-10-06 10:43] VITALS: BP 144/82
[2019-10-06 12:51] VITALS: BP 160/91
--- NOTE | 2019-10-06 13:01 | NUR ---
OLIVER NUNN, STARTED PT BLOOD PRESSURE MEDICATIONS BACK. ADMINISTERED. RESTING COMFORTABLY IN BED, DENIES ANY NEEDS. WILL CONTINUE TO MONITOR.
--- NOTE | 2019-10-06 14:10 | NUR ---
ADMINISTERED MEDICATION AND HUNG IV ANTIBIOTICS. NO COMPLAINT. RESTING COMFORTABLY IN BED. URNINE SPECIMEN COLLECTED, WILL DELIVER TO LAB. DENIES ANY NEEDS. ASSESSMENT PERFORMED AT THIS TIME. WILL CONTINUE TO MONITOR.
--- NOTE | 2019-10-06 16:20 | NUR ---
I have reviewed this patient and I concur with the Shift Assessment completed by the Licensed Practical Nurse today this shift.
--- NOTE | 2019-10-06 16:47 | NUR ---
JAZIEL MVI BAG, ASSESSED BLOOD SUGAR, 117. NO INSULIN REQUIRED. PT STATES HE DOESN'T TAKE INSULIN AT HOME BUT DOES CHECK HIS BLOOD SUGAR AND KEEPS UP WITH IT. DENIES ANY NEEDS. WILL CONTINUE TO MONITOR.
[2019-10-06 17:25] VITALS: BP 102/84
[2019-10-06 18:36] LABS: BILIRUBIN NEGATIVE (NEGATIVE); GLUCOSE NEGATIVE (NEGATIVE); KETONE NEGATIVE (NEGATIVE); NITRITE NEGATIVE (NEGATIVE); UROBILINOGEN NORMAL (NORMAL)
[2019-10-06 20:00] VITALS: BP 134/93
[2019-10-07] VITALS: BP 166/82
--- NOTE | 2019-10-07 01:35 | NUR ---
I have reviewed this patient and I concur with the Shift Assessment completed by the Licensed Practical Nurse today this shift.
[2019-10-07 04:00] VITALS: BP 165/83
[2019-10-07 06:53] LABS: ALBUMIN 2.9 g/dL (3.4-5.0); ANION GAP 10.8 mmol/L (8-16); BILIRUBIN - TOTAL 0.39 mg/dL (0.2-1.3); CARBON DIOXIDE 27.3 mmol/L (21.0-32.0); CREATININE - SERUM 1.7 mg/dL (0.6-1.3); PHOSPHOROUS 3.1 mg/dL (2.5-4.9); POTASSIUM - SERUM 4.1 mmol/L (3.5-5.1)
[2019-10-07 07:08] LABS: BASOPHILS 0 % (0-2); EOSINOPHILS 4.1 % (0-7); HEMATOCRIT 35.4 % (42.0-54.0); HEMOGLOBIN 11.7 g/dL (13.5-17.5); LYMPHOCYTES 52.2 % (15-50); MCH 30.2 pg (26.0-34.0); MCHC 33.1 g/dL (31.0-37.0); MCV 91.5 fL (80.0-100.0); MEAN PLATELET VOLUME 11.1 fL (7.4-10.4); NEUTROPHILS 32.7 % (40-80); PLATELET COUNT 73 10x3/uL (130-400); RBC 3.87 10x6/uL (4.20-6.10); RDW 16.1 % (11.5-14.5); WBC 2.5 10x3/uL (4.8-10.8)
--- NOTE | 2019-10-07 08:00 | NUR ---
ALERT ADN ORIENTED WITH NO S/S OF CONFUSION AT THIS TIME. GOOD ROM OF EXT X4. IVF INFUSING AT PRESCRIBED RATE. TELEMETRY INTACT AND DENIES ANY CHEST PAIN OR DISCOMFORT. USES CALL LIGHT FOR ASSSIT. LUNGS CTA AND HRRR. NO PERIPHERAL EDEMA NOTED.
[2019-10-07 08:03] VITALS: BP 174/86
[2019-10-07 12:18] VITALS: BP 138/85
[2019-10-07 16:24] VITALS: BP 137/80
[2019-10-07 20:00] VITALS: BP 134/71
--- NOTE | 2019-10-07 22:35 | NUR ---
RESTING QUEITLY WITH NO COMPLAITNS VOICED. RESP EVEN AND UNLABORED. NO DISTRESS NOTED. CL IN REACH
[2019-10-08] VITALS: BP 141/79
[2019-10-08 04:00] VITALS: BP 127/73
[2019-10-08 05:57] LABS: ALBUMIN 2.7 g/dL (3.4-5.0); ANION GAP 10.7 mmol/L (8-16); BILIRUBIN - TOTAL 0.37 mg/dL (0.2-1.3); CALCIUM 8.6 mg/dL (8.5-10.1); CARBON DIOXIDE 25.5 mmol/L (21.0-32.0); CREATININE - SERUM 1.6 mg/dL (0.6-1.3); MAGNESIUM - SERUM 2.1 mg/dL (1.8-2.4); PHOSPHOROUS 3.4 mg/dL (2.5-4.9); POTASSIUM - SERUM 4.2 mmol/L (3.5-5.1); PROTEIN - SERUM 6.4 g/dL (6.4-8.2)
[2019-10-08 06:32] LABS: HEMOGLOBIN 10.6 g/dL (13.5-17.5); MCH 29.9 pg (26.0-34.0); MCHC 33.1 g/dL (31.0-37.0); MCV 90.4 fL (80.0-100.0); MEAN PLATELET VOLUME 10.9 fL (7.4-10.4); PLATELET COUNT 85 10x3/uL (130-400); RBC 3.54 10x6/uL (4.20-6.10); WBC 2.9 10x3/uL (4.8-10.8)
--- NOTE | 2019-10-08 07:10 | NUR ---
REC'D IN BED AWAKE AND ALERT. RESP EVEN AND UNLABORED WITH NO DISTRESS NOTED. CAN VOICE NEEDS AND WANTS. ASSESSMENT COMPLETED. C/L IN REACH AT BEDSIDE.
[2019-10-08 08:25] VITALS: BP 160/80
[2019-10-08 11:19] LABS: EOSINOPHILS 3 % (0-7); LYMPHOCYTES 55 % (15-50); MONOCYTES 8 % (2-11); NEUTROPHILS 34 % (40-80); PLATELET ESTIMATE DECREASED
[2019-10-08 11:20] LABS: ROULEAUX OCC
[2019-10-08 12:17] VITALS: BP 158/81
--- NOTE | 2019-10-08 14:21 | CN ---
PATIENT NAME:ADILENE REDMAN MEDICAL RECORD: [id number] : [birth year] LOCATION:D.MS [facility] ADMIT DATE: 10/05/19 ACCOUNT: [id number] CONSULTING PHYSICIAN: HUMBLE PURCELL MD REFERRING PHYSICIAN: KILEY MASON DO DATE OF CONSULTATION: 10/07/2019 IDENTIFYING DATA: The patient is 73 years old and he currently is admitted to the hospital secondary to mental status changes and a urinary tract infection. CHIEF COMPLAINT: None. HISTORY OF PRESENT ILLNESS: The patient has long and complex medical history that include hypertension, diabetes, prostate cancer, nephrectomy, prostatectomy and a seizure disorder. In addition to his substantial and numerous medical problems, he has a history of chronic mental illness and is followed by [facility] in [place]. The patient has a history of alcoholism, although he has not consumed alcohol for several weeks and he presented here with some confusion and a urinary tract infection. Confusion is clearly better. He is fully oriented, and although he is circumstantial in his thought processes, this is characteristic of a person with bipolar disorder and not consistent with a delirium of some sort. The patient denies that he would seek to harm himself or others. He is on something of an atypical pharmacologic regimen that includes Seroquel he says for sleep and a higher than typical dose of valproic acid, but apparently he has been on this for a long time and tolerated it well. ASSESSMENT: 1. Delirium, resolved. 2. Bipolar disorder. PLAN: The patient is not showing any evidence of acute or direct dangerousness to himself or others. He is not out of touch with reality. He is fully oriented. I would recommend he be maintained on his current psychiatric medications and that he have follow up with his outpatient psychiatrist once released from this facility. TRANSINT:[id number] Voice Confirmation ID: [id number] DOCUMENT ID: [id number] HUMBLE PURCELL MD at 1421 CC: [id number] DICTATION DATE: 10/07/19 1456 SOUNDING DEVICE OPERATOR: 10/07/19 1646 ADM IN [place] [address] [place] [address]
--- NOTE | 2019-10-08 15:44 | NUR ---
OT NOTE: PT COMPLETED SIT TO STAND WITH CGA.PT COMPLETED EOB SITTING WITH SBA/CGA. PT COMPLETED UB HYGIENE WITHSET UP AT EOB. [id number] THANK YOU,KRYSTYNA FIGUEROA
[2019-10-08] MEDS ORDERED: PROTONIX40 MG PO (15:45)
[2019-10-08] MEDS ORDERED: NICODERM CQ1 EAC3 TRANSDERM (15:45)
[2019-10-08] MEDS ORDERED: MACROBID100 MG PO (15:47)
--- NOTE | 2019-10-08 16:39 | MORECARE ---
CASE MANAGEMENT DISCHARGE SUMMARY PATIENT: ADILENE REDMAN UNIT: [id number] ADM DATE: 10/05/19 AGE: 74 : [birth year] SEX: M ROOM/BED: D.2236 AUTHOR: CANDIDO SHERIFF PHYSICIAN: REFERRING PHYSICIAN: KILEY MASON DO DATE OF SERVICE: 10/08/19 Discharge Plan Patient Name: ADILENE REDMAN [facility] [facility] 1945 Planned Disposition: Home Hlth Svc w Plan Readm Anticipated Discharge Date: Discharge Date: Expected LOS: Initial Reviewer: [email or web address] Initial Review Date: 10/08/2019 Generated: 10/08/19 5:38 pm Patient Name: ADILENE REDMAN Page 63301 at 1639 All edits/amendments must be made on the electronic document DICTATION DATE: 10/08/19 1639 STRAIGHT TRUCK DRIVER: SENDY 10/08/19 1639 RPT#: [id number] DC DATE: STATUS: ADM IN [facility] [address] [place] [address] END OF REPORT
--- NOTE | 2019-10-08 16:50 | MORECARE ---
CASE MANAGEMENT DISCHARGE SUMMARY PATIENT: ADILENE REDMAN UNIT: [id number] ADM DATE: 10/05/19 AGE: 74 : 47 SEX: M ROOM/BED: D.2236 AUTHOR: CANDIDO SHERIFF PHYSICIAN: REFERRING PHYSICIAN: KILEY MASON DO DATE OF SERVICE: 10/08/19 Discharge Plan Patient Name: ADILENE REDMAN Facility: [facility]:[place] : 1945 Planned Disposition: Home Hlth Svc w Plan Readm Anticipated Discharge Date: Discharge Date: Expected LOS: Initial Reviewer: [id number] Initial Review Date: 10/08/2019 Generated: 10/08/19 5:49 pm Comments DCP- Discharge Planning Updated by [email or web address]: Saba Farrell on 10/08/19 3:[address] Patient Name: ADILENE REDMAN Admission Status: Elective Accout number: [id number] Admission Date: 10-05-2019 : 1945 Admission Diagnosis: Attending: KILEY MASON Current LOS: 3 Anticipated DC Date: Planned Disposition: Home Hlth Svc w Plan Readm Primary Insurance: MEDICARE A & B Discharge Planning Comments: CM met with patient at bedside after explaining CM role and obtaining verbal consent. CM discussed availability / needs of home health, REHAB and medical equipment. PATIENT DENIES ANY DISCHARGE NEEDS. STATES PLANS TO RESUME CARE 4 HH AND [facility]USER WILL ROLLING MACHINE TENDER TODAY. Lumber Tallier: Saba Farrell Coverage Notice Reviewer: [id number] - Saba Farrell Notice Issued Date-Time: 10/08/2019 16:40 Notice Type: IM Discharge Notice Notice Delivered To: Patient Relationship to Patient: Account Information Clerk Name: Delivery Method: HAND - Hand Delivered Nano Days: Prior Verbal Notification: Recipient Understood Notice: Yes Recipient Signature: Yes Med Rec Note Co-signed by Attending: Coverage Notice Comment: Last DP export: 10/08/19 3:39 pm Patient Name: ADILENE REDMAN Page [phone] at 1650 All edits/amendments must be made on the electronic document DICTATION DATE: 10/08/19 1649 PRODUCT DEVELOPMENT WORKER: SENDY 10/08/19 1649 RPT#: [id number] DC DATE: STATUS: ADM IN [facility] [address] [place] [address] END OF REPORT
[2019-10-08 16:59] VITALS: BP 162/78
--- NOTE | 2019-10-08 18:00 | NUR ---
DC HOME AT THIS TIME VOICES UNDERSTANDING OF ORDERS. CAN VOICE NEEDS AND WANTS. IV DC. DENIES ANY PAIN OR DISCOMFORT. STABLE CONDITION UPON DEPARTURE.
--- NOTE | 2019-10-09 09:26 | MORECARE ---
CASE MANAGEMENT DISCHARGE SUMMARY PATIENT: ADILENE REDMAN UNIT: [id number] ADM DATE: 10/05/19 AGE: 74 : 47 SEX: M ROOM/BED: D.2236 AUTHOR: CANDIDO SHERIFF PHYSICIAN: REFERRING PHYSICIAN: KILEY MASON DO DATE OF SERVICE: 10/09/19 Discharge Plan Patient Name: ADILENE REDMAN Facility: [facility]:[place] : 1945 Planned Disposition: Home Hlth Svc w Plan Readm Anticipated Discharge Date: Discharge Date: 10/08/2019 Expected LOS: Initial Reviewer: [email or web address] Initial Review Date: 10/08/2019 Generated: 10/09/19 10:25 am Comments DCP- Discharge Planning Updated by [email or web address]: Saba Farrell on 10/08/19 3:[address] Patient Name: ADILENE REDMAN Admission Status: Elective Accout number: [id number] Admission Date: 10-05-2019 : 1945 Admission Diagnosis: Attending: KILEY MASON Current LOS: 3 Anticipated DC Date: Planned Disposition: Home Hlth Svc w Plan Readm Primary Insurance: MEDICARE A & B Discharge Planning Comments: CM met with patient at bedside after explaining CM role and obtaining verbal consent. CM discussed availability / needs of home health, REHAB and medical equipment. PATIENT DENIES ANY DISCHARGE NEEDS. STATES PLANS TO RESUME CARE 4 HH AND JOSÉ MIGUELSMITHDAVINA WILL RETORT OR CONDENSER PRESS OPERATOR TODAY. Sister Superior: Saba Farrell Coverage Notice Reviewer: [id number] - Saba Farrell Notice Issued Date-Time: 10/08/2019 16:40 Notice Type: IM Discharge Notice Notice Delivered To: Patient Relationship to Patient: Legislative Advocate Name: Delivery Method: HAND - Hand Delivered Nano Days: Prior Verbal Notification: Recipient Understood Notice: Yes Recipient Signature: Yes Med Rec Note Co-signed by Attending: Coverage Notice Comment: Last DP export: 10/08/19 3:50 pm Patient Name: ADILENE REDMAN Page [phone] at 0926 All edits/amendments must be made on the electronic document DICTATION DATE: 06/01/19 925 PEDIATRIC DENTIST: DM 10/09/19924 RPT#: [id number] DC DATE:10/08/19 STATUS: DIS IN [place] [id number] [place] [address] END OF REPORT
== END 2019-10-08 18:26 | disposition home health service (06) | DRG 689 ==
LOC: D.MS 13:13
PROVIDERS: Family Medicine; ADMIT Family Medicine; ATTEND Family Medicine
DX: N39.0 Urinary tract infection, site not specified (principal); G93.41 Metabolic encephalopathy; D61.818 Other pancytopenia; N17.9 Acute kidney failure, unspecified; F17.203 Nicotine dependence unspecified, with withdrawal; F10.10 Alcohol abuse, uncomplicated; E11.9 Type 2 diabetes mellitus without complications; E83.42 Hypomagnesemia; I10 Essential (primary) hypertension; F31.9 Bipolar disorder, unspecified; G40.909 Epilepsy, unspecified, not intractable, without status epilepticus

== ENCOUNTER 2020-06-21 15:46 | Inpatient (IN) | payer OTHER ==
[~2020-06-21] VITALS: Ht 182.9 cm; Wt 109.8 kg
[~2020-06-21 15:46] MED LIST changes: +FOLIC ACID1 MG PO; +MACROBID100 MG PO; +NICODERM CQ1 EAC3 TRANSDERM; +PROTONIX40 MG PO
[2020-06-21 16:14] LABS: BASOPHILS 0 % (0-2); HEMATOCRIT 33.8 % (42.0-54.0); HEMOGLOBIN 10.9 g/dL (13.5-17.5); LYMPHOCYTES 51.2 % (15-50); MCH 31.5 pg (26.0-34.0); MCHC 32.2 g/dL (31.0-37.0); MCV 97.7 fL (80.0-100.0); MEAN PLATELET VOLUME 11.5 fL (7.4-10.4); MONOCYTES 10.6 % (2-11); NEUTROPHIL ABS# 1.09 10x3/uL (1.78-5.38); NEUTROPHILS 37.2 % (40-80); RBC 3.46 10x6/uL (4.20-6.10); RDW 15.5 % (11.5-14.5); WBC 2.9 10x3/uL (4.8-10.8)
[2020-06-21 16:17] LABS: PLATELET COUNT 57 10x3/uL (130-400)
[2020-06-21 16:28] LABS: INR 1.08 (0.85-1.17)
[2020-06-21 16:31] LABS: PLATELET ESTIMATE DECREASED
[2020-06-21 16:40] LABS: ALBUMIN 2.9 g/dL (3.4-5.0); ALKALINE PHOSPHATASE 79 U/L (30-120); ALT (SGPT) 30 U/L (10-68); BILIRUBIN - TOTAL 0.34 mg/dL (0.2-1.3); CALCIUM 8.9 mg/dL (8.5-10.1); CARBON DIOXIDE 26.2 mmol/L (21.0-32.0); CHLORIDE - SERUM 104 mmol/L (98-107); CREATINE KINASE 328 UL (21-232); CREATININE - SERUM 2.4 mg/dL (0.6-1.3); MAGNESIUM - SERUM 1.1 mg/dL (1.8-2.4); PROTEIN - SERUM 7.2 g/dL (6.4-8.2); SODIUM 137 mmol/L (136-145); TROPONIN-I < 0.017 ng/mL (0.000-0.060); UREA NITROGEN 33 mg/dL (7-18); eGFR NON AFRICAN AMERICAN 28 mL/min (90-120)
[2020-06-21 16:42] LABS: CALC OSMOLALITY 276 mosm/kg (275-300)
[2020-06-21 16:43] LABS: GLUCOSE 35 mg/dL (74-106)
[2020-06-21 17:09] LABS: CKMB 5.4 U/L (0.0-3.6); THYROID STIMULATING HORMONE 2.16 uIU/mL (0.36-3.74)
[2020-06-21 17:33] LABS: BILIRUBIN NEGATIVE (NEGATIVE); KETONE NEGATIVE (NEGATIVE); NITRITE NEGATIVE (NEGATIVE); UROBILINOGEN NORMAL mg/dL (< 2)
[2020-06-21 17:35] VITALS: BP 133/88
[2020-06-21 17:38] LABS: UDS - AMPHET NEGATIVE QUAL (NEGATIVE); UDS - BARB NEGATIVE QUAL (NEGATIVE); UDS - BENZO NEGATIVE QUAL (NEGATIVE); UDS - COCAINE NEGATIVE QUAL (NEGATIVE); UDS - OPIATE POSITIVE QUAL (NEGATIVE); UDS - PCP NEGATIVE QUAL (NEGATIVE); UDS - THC NEGATIVE QUAL (NEGATIVE)
[2020-06-21 17:39] LABS: WHITE CELLS - URINE >50 HPF (0-1)
[2020-06-21 17:40] LABS: BACTERIA FEW HPF (NONE SEEN); SQUAMOUS EPITHELIAL 0-5 HPF (0-4)
[2020-06-21 18:22] VITALS: BP 158/78
--- NOTE | 2020-06-21 19:44 | NUR ---
ASSUMING CARE AT THIS TIME. PATIENT LAYING FLAT IN BED WITH RAILS UP X2. NAD NOTED. PATIENT GIVEN URINAL, BED IN LOWEST LOCKED POSITION.
--- NOTE | 2020-06-21 21:38 | NUR ---
PATIENT SLEEPING IN BED. FSBS 40. HAVE PAGED PHYSICIAN FOR FURTHER ORDERS.
--- NOTE | 2020-06-21 21:41 | NUR ---
NEW ORDERS FROM MAYANK, 1 AMP D50, AND CONSULT RENAL FOR D10 FLOW RATE AND FURTHER ASSISTANCE.
[2020-06-21 21:53] VITALS: BP 154/75; BMI 32.9
[2020-06-21 22:23] VITALS: BP 153/81
[2020-06-21 23:40] LABS: CKMB 6.1 U/L (0.0-3.6); CREATINE KINASE 344 UL (21-232); TROPONIN-I 0.017 ng/mL (0.000-0.060)
--- NOTE | 2020-06-21 23:44 | NUR ---
ARLINE KEANE PAGED AT THIS TIME.
[2020-06-22] VITALS (8 sets, daily range): BP systolic 132–181; BP diastolic 63–125
--- NOTE | 2020-06-22 00:09 | NUR ---
PER DR. MARTINEZ, PRN D50 FOR LOW BLOOD SUGAR
--- NOTE | 2020-06-22 00:48 | NUR ---
REPEAT FSBS 126
--- NOTE | 2020-06-22 04:09 | NUR ---
PATIENT BEDDING SOILED. CHANGED BREIF, AND BEDDING. GUILLE CARE COMPLETED. WARM BLANKET APPLIED. SCD'S APPLIED. NAD NOTED. PATIENT RESTING WITH LIGHTS DIMMED FOR COMFORT.
--- NOTE | 2020-06-22 05:25 | NUR ---
PATIENT GIVEN WARM SOCKS.
[2020-06-22 05:51] LABS: BASOPHILS 0 % (0-2); EOSINOPHILS 1.5 % (0-7); HEMATOCRIT 36.1 % (42.0-54.0); HEMOGLOBIN 11.8 g/dL (13.5-17.5); LYMPHOCYTE ABS# 0.99 10x3/uL (1.32-3.57); LYMPHOCYTES 36.8 % (15-50); MCH 31.5 pg (26.0-34.0); MCHC 32.7 g/dL (31.0-37.0); MCV 96.3 fL (80.0-100.0); MEAN PLATELET VOLUME 11.7 fL (7.4-10.4); MONOCYTES 11.2 % (2-11); NEUTROPHIL ABS# 1.36 10x3/uL (1.78-5.38); NEUTROPHILS 50.5 % (40-80); PLATELET COUNT 65 10x3/uL (130-400); RBC 3.75 10x6/uL (4.20-6.10); RDW 15.1 % (11.5-14.5)
[2020-06-22 05:53] LABS: WBC 2.7 10x3/uL (4.8-10.8)
--- NOTE | 2020-06-22 06:05 | NUR ---
PATIENT FSBS 68. GAVE PATIENT APPLE JUICE. WILL RECHECK BLOOD SUGAR IN 1 HOUR.
[2020-06-22 06:13] LABS: CKMB 5.1 U/L (0.0-3.6); CREATINE KINASE 322 UL (21-232); TROPONIN-I 0.025 ng/mL (0.000-0.060)
[2020-06-22 06:15] LABS: ALBUMIN 2.9 g/dL (3.4-5.0); ANION GAP 11.5 mmol/L (8-16); BILIRUBIN - TOTAL 0.64 mg/dL (0.2-1.3); CREATININE - SERUM 1.9 mg/dL (0.6-1.3); PHOSPHOROUS 3.3 mg/dL (2.5-4.9); POTASSIUM - SERUM 4.5 mmol/L (3.5-5.1); PROTEIN - SERUM 7.3 g/dL (6.4-8.2); THYROID STIMULATING HORMONE 1.74 uIU/mL (0.36-3.74); VALPROIC ACID (DEPAKOTE) 76.2 ug/mL (50.0-100.0)
[2020-06-22 06:18] LABS: MAGNESIUM - SERUM 1.4 mg/dL (1.8-2.4)
--- NOTE | 2020-06-22 07:00 | NUR ---
RECEIVED REPORT FROM STAN MALDONADO
--- NOTE | 2020-06-22 08:09 | NUR ---
ROCEPHIN INFUSION COMPLETE
--- NOTE | 2020-06-22 08:15 | NUR ---
PULLED PT UP IN BED. PT AWAKE AND RESPONSIVE.
--- NOTE | 2020-06-22 08:23 | NUR ---
PT SITTING UP IN BED EATING BREAKFAST. CONVERSES WITH APPROPRIATE RESPONSES. NO COMPLAINTS AT THIS TIME.
[2020-06-22 11:56] LABS: CKMB 4.7 U/L (0.0-3.6); CREATINE KINASE 242 UL (21-232)
[2020-06-22 12:01] LABS: TROPONIN-I 0.016 ng/mL (0.000-0.060)
--- NOTE | 2020-06-22 17:11 | NUR ---
BLADDER SCANNED. 0 ML RETENTION.
[2020-06-22] MEDS ORDERED: GLUCOTROL XL 5 M5 MG PO (17:31)
[2020-06-22] MEDS ORDERED: TOPROL XL25 MG PO (17:32)
--- NOTE | 2020-06-22 18:02 | NUR ---
DC'D DEX 10 INFUSION D/T GLUCOSE 207. ADMINISTERED HUMALOG 4 UNITS.
[2020-06-23 07:31] LABS: BASOPHILS 0 % (0-2); HEMATOCRIT 38.2 % (42.0-54.0); HEMOGLOBIN 12.6 g/dL (13.5-17.5); LYMPHOCYTE ABS# 1.27 10x3/uL (1.32-3.57); MCH 31.4 pg (26.0-34.0); MCV 95.3 fL (80.0-100.0); MONOCYTES 10.6 % (2-11); NEUTROPHIL ABS# 1.47 10x3/uL (1.78-5.38); NEUTROPHILS 47.4 % (40-80); PLATELET COUNT 65 10x3/uL (130-400); RBC 4.01 10x6/uL (4.20-6.10); RDW 14.8 % (11.5-14.5); WBC 3.1 10x3/uL (4.8-10.8)
[2020-06-23 08:01] LABS: ALBUMIN 2.8 g/dL (3.4-5.0); BILIRUBIN - TOTAL 0.54 mg/dL (0.2-1.3); CALCIUM 9.5 mg/dL (8.5-10.1); CARBON DIOXIDE 23.7 mmol/L (21.0-32.0); CREATININE - SERUM 1.6 mg/dL (0.6-1.3); MAGNESIUM - SERUM 1.5 mg/dL (1.8-2.4); PHOSPHOROUS 2.7 mg/dL (2.5-4.9); PROTEIN - SERUM 7.4 g/dL (6.4-8.2)
[2020-06-23 08:05] LABS: ANION GAP 12.6 mmol/L (8-16); POTASSIUM - SERUM 5.3 mmol/L (3.5-5.1)
[2020-06-23 11:29] LABS: PLATELET ESTIMATE DECREASED
[2020-06-23 11:30] LABS: ANISOCYTOSIS OCC; ELLIPTOCYTES OCC
[2020-06-23 13:41] VITALS: BP 160/69
[2020-06-23 15:24] LABS: % SATURATION 19 % (15-55); IRON 54 ug/dl (35-150); TOTAL IRON BIND CAPACITY 272 ug/dl (260-445); UNSAT IRON BIND CAPACITY 218 ug/dl (150-375)
[2020-06-23 15:30] VITALS: BP 157/85
--- NOTE | 2020-06-23 15:54 | NUR ---
D5NS INFUSION STOPPED AT 1550
[2020-06-23 17:21] VITALS: BP 150/80; Ht 182.9 cm; Wt 109.8 kg
[2020-06-23 19:59] VITALS: BP 143/74
[2020-06-24 00:41] VITALS: BP 136/70
--- NOTE | 2020-06-24 01:02 | NUR ---
CHGE OF SHIFT BED ALARM SOUNDING ENTERED ROOM FOUND SITTING ON SIDE OF BED BETWEEN RAILS. ON ATTEMPT TO ASSIST BACK TO BED BECAME VERY AGGITATED/ARGUMENTATIVE.WANTING WHEELCHAIR EXPLAINED HAS YOU ON BEDREST.BRONWYN MAT REARMED FOR SAFETY. WILL CONTINUE TO MONITOR FOR ANY CHGES AND FOLLOW CURRENT PLAN OF CARE.
--- NOTE | 2020-06-24 02:58 | NUR ---
0100) ATTEMPTED TO DO BLOOD SUGAR BECAME VERY AGGITATED YELLING GET OUT OF MY WAY AND BRING ME A WHEELCHAIR
[2020-06-24 04:39] VITALS: BP 181/79
--- NOTE | 2020-06-24 05:28 | NUR ---
I have reviewed this patient and I concur with the Shift Assessment completed by the Licensed Practical Nurse today this shift.
[2020-06-24 07:37] LABS: ALBUMIN 2.8 g/dL (3.4-5.0); ANION GAP 12.2 mmol/L (8-16); BILIRUBIN - TOTAL 0.48 mg/dL (0.2-1.3); CALCIUM 9.2 mg/dL (8.5-10.1); CARBON DIOXIDE 26.9 mmol/L (21.0-32.0); CREATININE - SERUM 1.9 mg/dL (0.6-1.3); MAGNESIUM - SERUM 1.3 mg/dL (1.8-2.4); POTASSIUM - SERUM 4.1 mmol/L (3.5-5.1); PROTEIN - SERUM 7.2 g/dL (6.4-8.2)
[2020-06-24 07:46] LABS: BASOPHILS 0.3 % (0-2); EOSINOPHILS 0.9 % (0-7); HEMATOCRIT 35.4 % (42.0-54.0); HEMOGLOBIN 11.8 g/dL (13.5-17.5); LYMPHOCYTE ABS# 1.19 10x3/uL (1.32-3.57); LYMPHOCYTES 34.1 % (15-50); MCH 31.6 pg (26.0-34.0); MCHC 33.3 g/dL (31.0-37.0); MCV 94.9 fL (80.0-100.0); MONOCYTES 12.3 % (2-11); NEUTROPHIL ABS# 1.83 10x3/uL (1.78-5.38); NEUTROPHILS 52.4 % (40-80); PLATELET COUNT 76 10x3/uL (130-400); RBC 3.73 10x6/uL (4.20-6.10); WBC 3.5 10x3/uL (4.8-10.8)
[2020-06-24 08:32] VITALS: BP 165/82
--- NOTE | 2020-06-24 09:48 | NUR ---
PT UP AND WALKED ABOUT 50 FT WITH PT, PT BACK IN ROOM AND SITTING IN CHAIR
[2020-06-24 13:02] VITALS: BP 117/75
--- NOTE | 2020-06-24 17:20 | NUR ---
PT IN BED RESTING WITH EYES CLOSED, AROUSED EASILY FOR FSBG, BG 100, NO COVERAGE NEEDED.
[2020-06-24 18:57] VITALS: BP 168/77
[2020-06-24 20:44] VITALS: BP 164/74
[2020-06-25 00:57] VITALS: BP 156/72
[2020-06-25 04:49] VITALS: BP 116/76
[2020-06-25 07:38] LABS: ALBUMIN 2.9 g/dL (3.4-5.0); BILIRUBIN - TOTAL 0.56 mg/dL (0.2-1.3); CALCIUM 8.8 mg/dL (8.5-10.1); CARBON DIOXIDE 24.2 mmol/L (21.0-32.0); CREATININE - SERUM 1.7 mg/dL (0.6-1.3); MAGNESIUM - SERUM 1.9 mg/dL (1.8-2.4); POTASSIUM - SERUM 4.2 mmol/L (3.5-5.1); PROTEIN - SERUM 6.9 g/dL (6.4-8.2)
[2020-06-25 08:17] LABS: BASOPHILS 0.2 % (0-2); EOSINOPHILS 0.8 % (0-7); HEMATOCRIT 34.9 % (42.0-54.0); HEMOGLOBIN 11.8 g/dL (13.5-17.5); LYMPHOCYTES 29.6 % (15-50); MCH 31.9 pg (26.0-34.0); MCHC 33.8 g/dL (31.0-37.0); MCV 94.3 fL (80.0-100.0); MEAN PLATELET VOLUME 12.2 fL (7.4-10.4); MONOCYTES 11.2 % (2-11); NEUTROPHIL ABS# 2.75 10x3/uL (1.78-5.38); NEUTROPHILS 58.2 % (40-80); PLATELET COUNT 87 10x3/uL (130-400); RDW 14.8 % (11.5-14.5); WBC 4.7 10x3/uL (4.8-10.8)
[2020-06-25 08:44] VITALS: BP 169/88
[2020-06-25 11:46] LABS: PLATELET ESTIMATE DECREASED; ROULEAUX OCC
[2020-06-25 12:30] VITALS: BP 148/74
--- NOTE | 2020-06-25 16:05 | NUR ---
OT NOTE: PT COMPLETED BED MOB WITH CGA FOR SIDE ROLLING. PT COMPLETED SUPINE TO SIT WITH CGA-SBA. PT COMPLETED ORAL CARE WITH SETUP. PT COMPLETED FACE AND HAND HYGIENE WITH SETUP. PT REQUIRED MAX A FOR LB HYGIENE SECONDARY TO BM. PT CUED TO USE CALL LIGHT.PT COMPLETED BUE AROM EXS TOLERATED. [phone] THANK YOU,KRYSTYNA FIGUEROA
[2020-06-25 17:24] VITALS: BP 143/72
[2020-06-25] MEDS ORDERED: DEPAKOTE ER500 MG PO (18:05)
[2020-06-25] MEDS ORDERED: KLONOPIN1 MG PO (18:06)
[2020-06-25] MEDS ORDERED: VITAMIN B-1100 M1 PO (18:09)
--- NOTE | 2020-06-25 18:45 | NUR ---
PATIENT IN BED WITH IV INTACT. NO COMPLAINTS OR SIGNS OF DISTRESS. FAMILY AT BEDSIDE. CALL LIGHT WITHIN REACH.
[2020-06-25 20:23] VITALS: BP 147/80
--- NOTE | 2020-06-25 21:56 | NUR ---
REC'D IN BED DTR AT BEDSIDE. EATING FRIED CHICKEN MEAL FSBS 192. WILL CONTINUE TO MONITOR FOR ANY CHGES AND FOLLOW CURRENT PLAN OF CARE.
[2020-06-26] VITALS: BP 148/88
[2020-06-26 05:18] VITALS: BP 155/80
--- NOTE | 2020-06-26 05:54 | NUR ---
I have reviewed this patient and I concur with the Shift Assessment completed by the Licensed Practical Nurse today this shift.
[2020-06-26 06:45] LABS: ALBUMIN 3.2 g/dL (3.4-5.0); ANION GAP 13.3 mmol/L (8-16); BILIRUBIN - TOTAL 0.55 mg/dL (0.2-1.3); CALCIUM 9.4 mg/dL (8.5-10.1); CARBON DIOXIDE 26.8 mmol/L (21.0-32.0); CREATININE - SERUM 1.9 mg/dL (0.6-1.3); PHOSPHOROUS 3.1 mg/dL (2.5-4.9); POTASSIUM - SERUM 4.1 mmol/L (3.5-5.1)
[2020-06-26 06:46] LABS: MAGNESIUM - SERUM 1.4 mg/dL (1.8-2.4)
[2020-06-26 06:49] LABS: BASOPHILS 0 % (0-2); EOSINOPHILS 1.1 % (0-7); HEMATOCRIT 37.5 % (42.0-54.0); HEMOGLOBIN 12.5 g/dL (13.5-17.5); IMMATURE GRANULOCYTES 0.2 % (0-5); LYMPHOCYTE ABS# 1.55 10x3/uL (1.32-3.57); MCH 31.5 pg (26.0-34.0); MCHC 33.3 g/dL (31.0-37.0); MCV 94.5 fL (80.0-100.0); MEAN PLATELET VOLUME 11.5 fL (7.4-10.4); MONOCYTES 10.6 % (2-11); NEUTROPHIL ABS# 2.35 10x3/uL (1.78-5.38); NEUTROPHILS 53.1 % (40-80); RBC 3.97 10x6/uL (4.20-6.10); RDW 14.9 % (11.5-14.5); WBC 4.4 10x3/uL (4.8-10.8)
[2020-06-26 06:52] LABS: PLATELET COUNT 144 10x3/uL (130-400)
--- NOTE | 2020-06-26 07:27 | NUR ---
ALERT AND ORIENTED. ASSESSMENT COMPLETE. DENIES NEEDS. BED LOW. CALL MARSH AND PERSONAL ITEMS IN REACH. WILL CONTINUE TO MONITOR.
[2020-06-26 08:25] VITALS: BP 174/78
--- NOTE | 2020-06-26 10:20 | NUR ---
OLIVER HOLT NOTIFIED THAT PATIENT OK TO LEAVE PER ONCOLOGY AND NEPHROLOGY.
[2020-06-26 11:48] VITALS: BP 139/82
--- NOTE | 2020-06-26 14:22 | NUR ---
SPOKE WITH DR LAM TO SEE IF PATIENT GOING TO DC TODAY. STATES PATIENT IS GOING TO DC AND WILL PLACE ORDER.
[2020-06-26 15:58] VITALS: BP 155/68
--- NOTE | 2020-06-26 16:28 | MORECARE ---
CASE MANAGEMENT DISCHARGE SUMMARY PATIENT: ADILENE REDMAN UNIT: [id number] ADM DATE: 06/21/20 AGE: 74 : 47 SEX: M ROOM/BED: D.2219 AUTHOR: CANDIDO SHERIFF PHYSICIAN: REFERRING PHYSICIAN: ORESTES PIPER MD DATE OF SERVICE: 06/26/20 Discharge Plan Patient Name: ADILENE REDMAN Facility: [facility]:[place] : 1945 Planned Disposition: Home with Home Health Anticipated Discharge Date: Discharge Date: Expected LOS: Initial Reviewer: [email or web address] Initial Review Date: 06/21/2020 Generated: 06/26/20 5:28 pm External Providers External Provider: [facility] Next Contact Date: Service Request Date: Service Type: Resolution: Reviewer: Comments: Patient Name: ADILENE REDMAN Page 95410 at 1628 All edits/amendments must be made on the electronic document DICTATION DATE: 06/26/201627 HOTEL FRONT DESK AGENT: SENDY 06/26/208 RPT#: [id number] [place] DATE: STATUS: ADM IN [place] [address] [place] [address] END OF REPORT
--- NOTE | 2020-06-26 16:30 | NUR ---
OT NOTE: BED MOB WITH MIN ASSIST; IN ROOM AMBULATION WITH WALKER AND MIN ASSIST (MOD VERBAL CUES FOR SAFETY.. PT IS IMPULSIVE AND REQUIRES CUES FOR EQUIP MGMT. TOILETING WITH MIN ASSIST; MOD ASSIST TO DENIS SOCKS; MIN ASSIST FOR GOWN. SINK HYGIENE WITH FREQ VERBAL INSTRUCTION AND CGA FOR BALANCE. UE EXS FOR ENDURANCE. PT UP IN CHAIR WITH ALARM IN PLACE. GUILLERMINA TORRES, OTR/L [phone]
--- NOTE | 2020-06-26 16:46 | MORECARE ---
CASE MANAGEMENT DISCHARGE SUMMARY PATIENT: ADILENE REDMAN UNIT: [id number] ADM DATE: 06/21/20 AGE: 74 : 47 SEX: M ROOM/BED: D.2219 AUTHOR: CANDIDO SHERIFF PHYSICIAN: REFERRING PHYSICIAN: ORESTES PIPER MD DATE OF SERVICE: 06/26/20 Discharge Plan Patient Name: ADILENE REDMAN Facility: [facility]:[place] : 1945 Planned Disposition: Home with Home Health Anticipated Discharge Date: Discharge Date: Expected LOS: Initial Reviewer: [email or web address] Initial Review Date: 06/21/2020 Generated: 06/26/20 5:45 pm Last DP export: 06/26/20 3:28 p Patient Name: ADILENE REDMAN Page 01944 at 1646 All edits/amendments must be made on the electronic document DICTATION DATE: 06/26/201644 HEAD SCORER: SENDY 06/26/201644 RPT#: [id number] DC DATE: STATUS: ADM IN [facility] [address] [place] [address] END OF REPORT
--- NOTE | 2020-06-26 16:54 | MORECARE ---
CASE MANAGEMENT DISCHARGE SUMMARY PATIENT: ADILENE REDMAN UNIT: [id number] ADM DATE: 06/21/20 AGE: 74 : 47 SEX: M ROOM/BED: D.2219 AUTHOR: JAZIEL,DOC PHYSICIAN: REFERRING PHYSICIAN: ORESTES PIPER MD DATE OF SERVICE: 06/26/20 Discharge Plan Patient Name: ADILENE REDMAN Facility: [facility]:[place] : 1945 Planned Disposition: Home with Home Health Anticipated Discharge Date: Discharge Date: Expected LOS: Initial Reviewer: [email or web address] Initial Review Date: 06/21/2020 Generated: 06/26/20 5:53 pm Comments DCP- Discharge Planning Updated by [id number]: Lisa Cotton on 06/26/20 3:[address] Patient Name: ADILENE REDMAN Admission Status: ER Accout number: [id number] Admission Date: 06-21-2020 : 1945 Admission Diagnosis:TYPE 2 DIABETES MELLITUS WITH HYPOGLYCEMIA WITHOUT COMA Attending: ORESTES AWAD Current LOS: 5 Anticipated DC Date: Planned Disposition: Home with Home Health Primary Insurance: [employer] Discharge Planning Comments: CM met with patient to complete initial dc planning assessment. CM educated patient on the CM role and verbal consent given by patient to complete assessment. Patient lives at home by himself where he states he is independent with his care. At discharge patient plans to return home and feels this is a safe discharge. CM discussed availability of home health, rehab services, and medical equipment. He would like home health services. NAINA signed. Referral sent to [facility]. IMM also signed and placed in chart. 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 Patient denied known discharge needs at this time. CM will continue to follow and will assist as needed with dc plans/needs. Fisher Eel: Lisa Cotton DCPIA - Discharge Planning Initial Assessment Updated by [email or web address]: Lisa Cotton on 06/26/20 4:50 pm * Is the patient Alert and Oriented? Yes * How many steps to enter\exit or inside your home? * PCP [facility] * Pharmacy [facility] * Preadmission Environment Home Alone * ADLs Independent * Equipment None * List name and contact numbers for known caregivers / representatives who currently or will assist patient after discharge: LISANDRA HANSEN [phone] * Verbal permission to speak to the caregivers and representatives has been obtained from the patient. N/A * Community resources currently utilized None * Additional services required to return to the preadmission environment? Yes * Can the patient safely return to the preadmission environment? Yes * Has this patient been hospitalized within the prior 30 days at any hospital? No Coverage Notice Reviewer: [email or web address] Cotton Notice Issued Date-Time: 06/26/2020 16:10 Notice Type: Patient Choice Letter Notice Delivered To: Patient Relationship to Patient: Filter Filler Name: Delivery Method: HAND - Hand Delivered Nano Days: Prior Verbal Notification: Recipient Understood Notice: Yes Recipient Signature: Yes Med Rec Note Co-signed by Attending: Coverage Notice Comment: Reviewer: MEAGHAN Cotton Notice Issued Date-Time: 06/26/2020 16:10 Notice Type: IM Discharge Notice Notice Delivered To: Patient Relationship to Patient: Filter Filler Name: Delivery Method: HAND - Hand Delivered Nano Days: Prior Verbal Notification: Recipient Understood Notice: Yes Recipient Signature: Yes Med Rec Note Co-signed by Attending: Coverage Notice Comment: imm served and explained Last DP export: 06/26/20 3:46 p Patient Name: ADILENE REDMAN Page [phone] at 1654 All edits/amendments must be made on the electronic document DICTATION DATE: 06/26/201653 OUTREACH MANAGER: SENDY 06/26/201653 RPT#: [id number] DC DATE: STATUS: ADM IN [facility] [address] [place] [address] END OF REPORT
--- NOTE | 2020-06-26 16:58 | NUR ---
DISCHARGE EDUCATION PROVIDED BOTH WRITTEN AND VERBAL TO PATIENT AND TO DAUGHTER VIA PHONE D/T PATIENT CONFUSED. PATIENT UNABLE TO SIGN PAPERWORK D/T CONFUSION. IV REMOVED FROM LFA WITH TIP INTACT. PATIENT DRESSED FOR DC AND BELONGINGS PACKED. DAUGHTER STATES IS STUCK IN TRAFFIC BUT ON HER WAY TO DISPLAY COORDINATOR PATIENT.
--- NOTE | 2020-06-26 17:56 | NUR ---
PATIENT DC HOME WITH ALL BELONGINGS.
== END 2020-06-26 18:00 | disposition home health service (06) | DRG 637 ==
LOC: D.ER 15:46 → D.MS 19:28 → D.EDHOLD 19:28 → D.MS 06-22 20:33 → D.EDHOLD 06-22 21:06 → D.MS 06-23 15:35
PROVIDERS: Family Medicine; Internal Medicine Hematology & Oncology; ADMIT Family Medicine; ATTEND Family Medicine
DX: E11.649 Type 2 diabetes mellitus with hypoglycemia without coma (principal); G93.41 Metabolic encephalopathy; D61.818 Other pancytopenia; N39.0 Urinary tract infection, site not specified; N13.30 Unspecified hydronephrosis; E11.22 Type 2 diabetes mellitus with diabetic chronic kidney disease; I12.9 Hypertensive chronic kidney disease with stage 1 through stage 4 chronic kidney disease, or unspecified chronic kidney disease; N18.9 Chronic kidney disease, unspecified; N17.9 Acute kidney failure, unspecified; E83.42 Hypomagnesemia; E78.5 Hyperlipidemia, unspecified; Z85.46 Personal history of malignant neoplasm of prostate; K59.00 Constipation, unspecified

== ENCOUNTER 2020-09-25 18:16 | Inpatient (IN) | payer OTHER ==
[~2020-09-25] VITALS: Ht 182.9 cm; Wt 80.6 kg
[~2020-09-25 18:16] MED LIST changes: +DEPAKOTE ER500 MG PO; +GLUCOTROL XL 5 M5 MG PO; +TOPROL XL25 MG PO; +VITAMIN B-1100 M1 PO
[2020-09-25 19:18] LABS: BILIRUBIN NEGATIVE (NEGATIVE); KETONE MODERATE mg/dL (NEGATIVE); NITRITE NEGATIVE (NEGATIVE); UROBILINOGEN NORMAL mg/dL (< 2)
[2020-09-25 19:19] LABS: BASOPHILS 0.4 % (0-2); EOSINOPHILS 0.3 % (0-7); HEMATOCRIT 37.4 % (42.0-54.0); HEMOGLOBIN 12.5 g/dL (13.5-17.5); LYMPHOCYTES 24.3 % (15-50); MCH 30.9 pg (26.0-34.0); MCHC 33.4 g/dL (31.0-37.0); MCV 92.4 fL (80.0-100.0); MEAN PLATELET VOLUME 8.9 fL (7.4-10.4); PLATELET COUNT 118 10x3/uL (130-400); RBC 4.05 10x6/uL (4.20-6.10); RDW 16.6 % (11.5-14.5); WBC 4.4 10x3/uL (4.8-10.8)
[2020-09-25 19:25] LABS: BACTERIA FEW HPF (NONE SEEN); SQUAMOUS EPITHELIAL NONE SEEN HPF (0-4); WHITE CELLS - URINE 25-50 HPF (0-1)
[2020-09-25 19:26] LABS: CALC OSMOLALITY 285 mosm/kg (275-300); CALCIUM 9.4 mg/dL (8.5-10.1); CARBON DIOXIDE 21.8 mmol/L (21.0-32.0); CHLORIDE - SERUM 101 mmol/L (98-107); CREATININE - SERUM 1.8 mg/dL (0.6-1.3); GLUCOSE 102 mg/dL (74-106); POTASSIUM - SERUM 4.3 mmol/L (3.5-5.1); SODIUM 138 mmol/L (136-145); UREA NITROGEN 41 mg/dL (7-18); eGFR NON AFRICAN AMERICAN 40 mL/min (90-120)
[2020-09-25 20:00] VITALS: BP 156/92
[2020-09-25 20:09] LABS: ALBUMIN 3.7 g/dL (3.4-5.0); ALKALINE PHOSPHATASE 75 U/L (30-120); ALT (SGPT) 37 U/L (10-68); BILIRUBIN - TOTAL 1.03 mg/dL (0.2-1.3); CREATINE KINASE 651 UL (21-232); MAGNESIUM - SERUM 1.4 mg/dL (1.8-2.4); PROTEIN - SERUM 7.6 g/dL (6.4-8.2); THYROID STIMULATING HORMONE 1.75 uIU/mL (0.36-3.74); VALPROIC ACID (DEPAKOTE) 3.7 ug/mL (50.0-100.0)
[2020-09-25 20:13] LABS: TROPONIN-I < 0.017 ng/mL (0.000-0.060)
[2020-09-25 20:14] LABS: CKMB 10.5 U/L (0.0-3.6)
[2020-09-25 21:00] VITALS: BP 156/92
[2020-09-25 22:00] VITALS: BP 172/95
[2020-09-25 22:00] LABS: APTT 34.4 SECONDS (22.8-39.4)
--- NOTE | 2020-09-25 22:30 | NUR ---
RECEIVED PT FROM ER, VIA BED. PT AROUSES TO VOICE, DISORIENTATED TO TIME AND SITUATION. PIV TO RIGHT AC, PATENT AND INFUSING, NO REDNESS OR SWELLING. PLACED TELEMETRY 93 SR. PLACED SCDS BILAT LOWER EXTREM. INITIATED BED ALARM AND BRONWYN, PLACED NON-SLIP SOCKS. EDUCATED PT ON CL AND NEEDS, VERBALIZED UNDERSTANDING. BED LOW, CL IN REACH.
[2020-09-26] VITALS (7 sets, daily range): BP systolic 112–158; BP diastolic 55–80; BMI 28.5
[2020-09-26 01:38] LABS: PROTIME 11.2 SECONDS (11.6-15.0)
[2020-09-26 01:41] LABS: UDS - AMPHET NEGATIVE QUAL (NEGATIVE); UDS - BARB NEGATIVE QUAL (NEGATIVE); UDS - BENZO NEGATIVE QUAL (NEGATIVE); UDS - COCAINE NEGATIVE QUAL (NEGATIVE); UDS - OPIATE NEGATIVE QUAL (NEGATIVE); UDS - PCP NEGATIVE QUAL (NEGATIVE); UDS - THC NEGATIVE QUAL (NEGATIVE)
[2020-09-26 02:25] LABS: CKMB 11.5 U/L (0.0-3.6); CREATINE KINASE 628 UL (21-232)
[2020-09-26 02:28] LABS: TROPONIN-I < 0.017 ng/mL (0.000-0.060)
--- NOTE | 2020-09-26 07:23 | NUR ---
RECIEVED BEDSIDE REPORT. PATIENT IN BED, AROUSES TO VOICE. CONFUSED TO TIME, PLACE, AND SITUATION. BRONWYN AND BED ALARM ON. MOVED PATIENT UP IN THE BED. IV INFUSING PER MAR. FREE FROM SIGNS OF DISTRESS. BED LOW POSITION, CALL LIGHT IN REACH. CHANGED PAPER CHUCKS UNDER PATIENT DUE TO INCONTINENT EPISODE. WILL CONTINUE TO [facility].
[2020-09-26 08:25] LABS: BASOPHILS 0.4 % (0-2); EOSINOPHILS 2.7 % (0-7); HEMATOCRIT 33.9 % (42.0-54.0); HEMOGLOBIN 11.6 g/dL (13.5-17.5); MCH 31.5 pg (26.0-34.0); MCHC 34.2 g/dL (31.0-37.0); MCV 92.2 fL (80.0-100.0); MEAN PLATELET VOLUME 9.2 fL (7.4-10.4); MONOCYTES 8.2 % (2-11); NEUTROPHILS 46.7 % (40-80); PLATELET COUNT 111 10x3/uL (130-400); RBC 3.67 10x6/uL (4.20-6.10); RDW 16.4 % (11.5-14.5); WBC 3.7 10x3/uL (4.8-10.8)
[2020-09-26 08:39] LABS: CALC OSMOLALITY 279 mosm/kg (275-300); CALCIUM 9.2 mg/dL (8.5-10.1); CARBON DIOXIDE 25.3 mmol/L (21.0-32.0); CHLORIDE - SERUM 102 mmol/L (98-107); CREATINE KINASE 557 UL (21-232); CREATININE - SERUM 1.7 mg/dL (0.6-1.3); GLUCOSE 89 mg/dL (74-106); PHOSPHOROUS 3.7 mg/dL (2.5-4.9); SODIUM 136 mmol/L (136-145); TROPONIN-I < 0.017 ng/mL (0.000-0.060); UREA NITROGEN 39 mg/dL (7-18); eGFR NON AFRICAN AMERICAN 42 mL/min (90-120)
[2020-09-26 08:41] LABS: MAGNESIUM - SERUM 1.9 mg/dL (1.8-2.4)
[2020-09-26 11:12] LABS: INR 1.13 (0.85-1.17); PROTIME 13.4 SECONDS (11.6-15.0)
[2020-09-26 13:45] LABS: CKMB 5.5 U/L (0.0-3.6); CREATINE KINASE 430 UL (21-232)
[2020-09-26 13:46] LABS: TROPONIN-I < 0.017 ng/mL (0.000-0.060)
--- NOTE | 2020-09-26 17:07 | NUR ---
OT NOTE: PT COMPLETED UE AROM EXS TOLERATED. PT COMPLETED BED MOB WITH MIN A. CL IN REACH..ALARM ON. [id number] BERTO HOWELL COTA
[2020-09-27 05:38] VITALS: BP 157/81
[2020-09-27 06:06] LABS: HEMATOCRIT 32.6 % (42.0-54.0); HEMOGLOBIN 11.1 g/dL (13.5-17.5); MCH 31.3 pg (26.0-34.0); MCV 92.1 fL (80.0-100.0); PLATELET COUNT 96 10x3/uL (130-400); RBC 3.54 10x6/uL (4.20-6.10); RDW 16.9 % (11.5-14.5)
[2020-09-27 06:28] LABS: WBC 2.6 10x3/uL (4.8-10.8)
[2020-09-27 06:48] LABS: ANION GAP 11.8 mmol/L (8-16); CALCIUM 8.9 mg/dL (8.5-10.1); CARBON DIOXIDE 23.2 mmol/L (21.0-32.0); CREATININE - SERUM 1.5 mg/dL (0.6-1.3); MAGNESIUM - SERUM 1.5 mg/dL (1.8-2.4); PHOSPHOROUS 3.7 mg/dL (2.5-4.9)
[2020-09-27 10:19] LABS: ANISOCYTOSIS 1+; EOSINOPHILS 1 % (0-7); LYMPHOCYTES 55 % (15-50); MICROCYTOSIS OCC; MONOCYTES 3 % (2-11); NEUTROPHILS 39 % (40-80); PLATELET ESTIMATE DECREASED; POLYCHROMASIA OCC
[2020-09-27 10:28] VITALS: BP 139/80
--- NOTE | 2020-09-27 13:01 | NUR ---
THANK YOU FOR THIS REFERRAL. NOTIFIED ARNOLDO SAHNI, CASING TIER VIA HER CONFIDENTIAL VOICEMAIL THAT DUE TO THIS PATIENT'S MANAGED CARE INSURANCE, PRE AUTHORIZATION WILL HAVE TO BE REQUESTED ON TUESDAY OR TUESDAY DEPENDING ON THE INSURANCE COMPANY'S HOLIDAY HOURS.-BOOKER GONZALES LPN, CLINICAL LIAISON
[2020-09-27 18:36] VITALS: BP 138/70
[2020-09-27 21:03] VITALS: BP 159/76
[2020-09-28 05:13] VITALS: BP 158/72
[2020-09-28 07:02] LABS: BASOPHILS 0.5 % (0-2); EOSINOPHILS 4.6 % (0-7); HEMATOCRIT 29.1 % (42.0-54.0); LYMPHOCYTES 61.4 % (15-50); MCH 31.8 pg (26.0-34.0); MCHC 34.3 g/dL (31.0-37.0); MCV 92.7 fL (80.0-100.0); MEAN PLATELET VOLUME 8.8 fL (7.4-10.4); MONOCYTES 7.3 % (2-11); NEUTROPHILS 26.2 % (40-80); PLATELET COUNT 95 10x3/uL (130-400); RBC 3.14 10x6/uL (4.20-6.10); RDW 17.1 % (11.5-14.5); WBC 2.8 10x3/uL (4.8-10.8)
[2020-09-28 07:12] LABS: ANION GAP 11.2 mmol/L (8-16); CALCIUM 8.6 mg/dL (8.5-10.1); CARBON DIOXIDE 24.7 mmol/L (21.0-32.0); CREATININE - SERUM 1.5 mg/dL (0.6-1.3); MAGNESIUM - SERUM 1.3 mg/dL (1.8-2.4); PHOSPHOROUS 3.8 mg/dL (2.5-4.9); POTASSIUM - SERUM 3.9 mmol/L (3.5-5.1)
[2020-09-28 09:56] VITALS: BP 138/63
--- NOTE | 2020-09-28 13:29 | NUR ---
PT WALKED 500FT WITH PT TODAY, PT STATES PT HAS STEADY GATE BUT PT IS NOT READY TO WALK BY HIMSELF WITHOUT A WALKER OR ASSISTANCE
[2020-09-28 14:06] VITALS: BP 153/76
[2020-09-28 18:38] VITALS: BP 125/68
[2020-09-28 20:00] VITALS: BP 149/73
[2020-09-29] VITALS: BP 118/54
--- NOTE | 2020-09-29 | NUR ---
RIGHT AC IV LEAKING. REMOVED CATHETER INTACT. RESITED 22G IV TO RIGHT FOREARM FIRST ATTEMPT. RESUMED IV FLUIDS AND HUNG SCHEDULED ANTIBIOTIC. PT ALERT AND ORIENTED X 3. STATES HE "FEELS MUCH BETTER." STANDBY ASSIST ONLY FOR PT TO WALK TO TOILET. NO NEEDS AT THIS TIME. WILL CONTINUE TO MONITOR.
[2020-09-29 04:00] VITALS: BP 136/64
[2020-09-29 06:33] LABS: HEMATOCRIT 29.3 % (42.0-54.0); MCH 31.2 pg (26.0-34.0); MCHC 34.1 g/dL (31.0-37.0); MCV 91.6 fL (80.0-100.0); MEAN PLATELET VOLUME 9.4 fL (7.4-10.4); PLATELET COUNT 100 10x3/uL (130-400); RDW 16.7 % (11.5-14.5); WBC 2.9 10x3/uL (4.8-10.8)
[2020-09-29 07:06] LABS: EOSINOPHILS 12 % (0-7); LYMPHOCYTES 32 % (15-50); MONOCYTES 1 % (2-11); NEUTROPHILS 53 % (40-80); PLATELET ESTIMATE NORMAL
[2020-09-29 07:38] LABS: ANION GAP 12.2 mmol/L (8-16); CALCIUM 8.9 mg/dL (8.5-10.1); CARBON DIOXIDE 23.8 mmol/L (21.0-32.0); CREATININE - SERUM 1.3 mg/dL (0.6-1.3); MAGNESIUM - SERUM 1.2 mg/dL (1.8-2.4); PHOSPHOROUS 3.6 mg/dL (2.5-4.9)
--- NOTE | 2020-09-29 08:15 | NUR ---
RECIEVED BEDSIDE REPORT. IN BED SLEEPING. AROUSES TO VOICE, FREE FROM SIGNS OF DISTRESS. BED LOW POSITION, CALL LIGHT IN REACH. WILL CONTINUE TO MONITOR.
[2020-09-29 10:02] VITALS: BP 148/75
[2020-09-29 11:04] VITALS: BMI 28.5
[2020-09-29 13:32] VITALS: BP 153/75
--- NOTE | 2020-09-29 14:45 | NUR ---
OT NOTE: PT COMPLETED BED MOBILITY TASKS WITH MIN A. PT COMPLETED BUE AROM ACTIVITIES TOLERATED. PT COMPLETED UB HYGIENE WITH SETUP-MIN A. 7-675 BERTO HOWELL COTA
[2020-09-29 16:52] VITALS: BP 146/70
--- NOTE | 2020-09-29 17:31 | NUR ---
NOTIFIED LISANDRA SAHNI RN, BRONZE CHASER THAT WILL SUBMIT TO INSURANCE FOR PRE AUTH TOMORROW IF CLINICALLY APPROPRIATE. THANK YOU- BOOKER GONZALES LPN, CLINICAL LIAISON
[2020-09-29 20:00] VITALS: BP 139/69
--- NOTE | 2020-09-30 03:51 | NUR ---
I have reviewed this patient and I concur with the Shift Assessment completed by the Licensed Practical Nurse today this shift.
--- NOTE | 2020-09-30 03:52 | NUR ---
I have reviewed this patient and I concur with the Shift Assessment completed by the Licensed Practical Nurse today this shift.
[2020-09-30 04:00] VITALS: BP 151/63
[2020-09-30 04:31] VITALS: BP 130/67; Ht 182.9 cm; Wt 80.6 kg
[2020-09-30 06:35] LABS: BASOPHILS 0.4 % (0-2); EOSINOPHILS 5.3 % (0-7); HEMATOCRIT 29.1 % (42.0-54.0); HEMOGLOBIN 10.1 g/dL (13.5-17.5); LYMPHOCYTES 61.5 % (15-50); MCH 31.9 pg (26.0-34.0); MCHC 34.7 g/dL (31.0-37.0); MCV 91.8 fL (80.0-100.0); MEAN PLATELET VOLUME 9.5 fL (7.4-10.4); MONOCYTES 7.3 % (2-11); NEUTROPHILS 25.5 % (40-80); PLATELET COUNT 112 10x3/uL (130-400); RBC 3.17 10x6/uL (4.20-6.10); WBC 2.8 10x3/uL (4.8-10.8)
[2020-09-30 06:40] LABS: ANION GAP 10.2 mmol/L (8-16); CALCIUM 8.7 mg/dL (8.5-10.1); CARBON DIOXIDE 25.9 mmol/L (21.0-32.0); CREATININE - SERUM 1.3 mg/dL (0.6-1.3); MAGNESIUM - SERUM 1.7 mg/dL (1.8-2.4); PHOSPHOROUS 3.2 mg/dL (2.5-4.9); POTASSIUM - SERUM 4.1 mmol/L (3.5-5.1)
--- NOTE | 2020-09-30 07:35 | NUR ---
0700 BEDSIDE REPORT RECEIVED FROM NURSE COONEY PT ASLEEP AWAKENS TO VOICE VOICES NO COMPLANINTS AT THIS TIME
[2020-09-30 08:49] VITALS: BP 157/63
[2020-09-30 11:56] VITALS: BP 127/79
[2020-09-30 16:31] VITALS: BP 164/78
[2020-09-30 20:00] VITALS: BP 167/88
[2020-10-01] VITALS: BP 171/85
[2020-10-01 04:00] VITALS: BP 144/72
--- NOTE | 2020-10-01 08:02 | NUR ---
0700 BEDSIDE REPORT RECEIVED FROM ISABELLE PT RESTING WITH EYES CLOSED AWAKENS TO VOICE NO COMPLAINTS AT THIS TIME
[2020-10-01 08:16] VITALS: BP 162/77
[2020-10-01 08:29] LABS: HEMATOCRIT 29.8 % (42.0-54.0); HEMOGLOBIN 10.2 g/dL (13.5-17.5); MCH 31.3 pg (26.0-34.0); MCHC 34.2 g/dL (31.0-37.0); MCV 91.8 fL (80.0-100.0); MEAN PLATELET VOLUME 9.8 fL (7.4-10.4); PLATELET COUNT 124 10x3/uL (130-400); RBC 3.25 10x6/uL (4.20-6.10); WBC 2.8 10x3/uL (4.8-10.8)
[2020-10-01 08:43] LABS: ANION GAP 12.2 mmol/L (8-16); CALCIUM 8.6 mg/dL (8.5-10.1); CARBON DIOXIDE 25.8 mmol/L (21.0-32.0); CREATININE - SERUM 1.3 mg/dL (0.6-1.3); MAGNESIUM - SERUM 1.5 mg/dL (1.8-2.4); PHOSPHOROUS 2.7 mg/dL (2.5-4.9)
[2020-10-01 09:12] LABS: EOSINOPHILS 4 % (0-7); LYMPHOCYTES 56 % (15-50); MONOCYTES 11 % (2-11); NEUTROPHILS 29 % (40-80); PLATELET ESTIMATE DECREASED
--- NOTE | 2020-10-01 10:12 | NUR ---
PATIENT IS TOO HIGH FUNCTIONING FOR INPATIENT REHAB. WE WOULD RECOMMEND HOME WITH HOME HEALTH IF HE CONTINUES TO NEED POST ACUTE CARE. THANK YOU FOR THE REFERRAL AND LET US KNOW IF HE HAS A CHANGE AND NEEDS RE-EVALUATING. OLEGARIO FLORES RN CLINICAL LIAISON, INPATIENT REHAB.
--- NOTE | 2020-10-01 11:59 | MORECARE ---
CASE MANAGEMENT DISCHARGE SUMMARY PATIENT: ADILENE REDMAN UNIT: [id number] ADM DATE: 09/25/20 AGE: 74 : 47 SEX: M ROOM/BED: D.[facility] AUTHOR: JAZIELDOC PHYSICIAN: REFERRING PHYSICIAN: PRUDENCIO WATERMAN MD DATE OF SERVICE: 10/01/20 Case Management Discharge Planning Summary DCP REVIEW SUMMARY ANTICIPATED D/C DATE: EXPECTED LOS : CASE STATUS: DCP Initiated INITIAL REVIEW: 09/25/2020 INITIAL REVIEWER: Saba Farrell FINAL DISCHARGE DISPOSITION: : FINAL REVIEWER: FINAL REVIEW DATE: DCP Focus Questions & Answers QUESTION: ANSWER : PATIENT: ADILENE REDMAN ENCOUNTER: [id number] MEDICAL RECORD#: [id number] ADMISSION DATE: 09/25/2020 DISCHARGE DATE: ATTENDING MD: PRUDENCIO HILL : AGE: 74 MARITAL STATUS: D DC PLAN ID: [id number] FACILITY: [facility] PRINTED ON: 10/01/20 11:59 CT All edits/amendments must be made on the electronic document DICTATION DATE: 10/01/20 1159 ACCORDION REPAIRER: DM 10/01/20 1159 RPT#: [id number] DC DATE: STATUS: ADM IN [facility] [address] [place] [address] END OF REPORT
--- NOTE | 2020-10-01 12:11 | MORECARE ---
CASE MANAGEMENT DISCHARGE SUMMARY PATIENT: ADILENE REDMAN UNIT: [id number] ADM DATE: 09/25/20 AGE: 74 : 47 SEX: M ROOM/BED: D.2236 AUTHOR: JAZIEL,DOC PHYSICIAN: REFERRING PHYSICIAN: PRUDENCIO WATERMAN MD DATE OF SERVICE: 10/01/20 Case Management Discharge Planning Summary COMMENTS ENTERED DATE: 10/01/20 11:59 CT COMMENT TYPE: Discharge Planning REVIEWER: Saba Farrell CM met with patient at bedside after obtaining verbal consent. CM discussed availability / needs of home health, REHAB and medical equipment. Patient states has walker and cane at home, lives alone. Plans to return home when dc'd and daughter should be able to pick remover after she gets off work at 2pm. Patient would like care 4 home health. NAINA and IMM signed and placed on chart. Referral faxed to care 4. Patient pcp is Dr. Patten and he uses pharmacy at [place] [address]. CM to follow and assist as needed. DCP REVIEW SUMMARY ANTICIPATED D/C DATE: EXPECTED LOS : CASE STATUS: DCP Initiated INITIAL REVIEW: 09/25/2020 INITIAL REVIEWER: Saba Farrell FINAL DISCHARGE DISPOSITION: : FINAL REVIEWER: FINAL REVIEW DATE: DCP Focus Questions & Answers QUESTION: ANSWER : PATIENT: ADILENE REDMAN ENCOUNTER: [id number] MEDICAL RECORD#: [id number] ADMISSION DATE: 09/25/2020 DISCHARGE DATE: ATTENDING MD: PRUDENCIO HILL : AGE: 74 MARITAL STATUS: D DC PLAN ID: [id number] FACILITY: [facility] PRINTED ON: 10/01/20 12:11 CT All edits/amendments must be made on the electronic document DICTATION DATE: 10/01/20 121 REAL ESTATE LISTING CONSULTANT: SENDY 10/01/20 1211 RPT#: [id number] DC DATE: STATUS: ADM IN [facility] [address] [place] [address] END OF REPORT
[2020-10-01 12:43] VITALS: BP 152/78
--- NOTE | 2020-10-01 14:22 | NUR ---
1422 WRITTEN AND VERBAL DD ORDER GIVEN PT VERBALIZES UNDERSTANDING TRANSPORT TO FROM DOOR VIA WC WHERE HIS DAUGHTER IS WAITING TO DRIVE HIM HOME
--- NOTE | 2020-10-03 12:54 | MORECARE ---
CASE MANAGEMENT DISCHARGE SUMMARY PATIENT: ADILENE REDMAN UNIT: [id number] ADM DATE: 09/25/20 AGE: 74 : 47 SEX: M ROOM/BED: D.2236 AUTHOR: JAZIEL,DOC PHYSICIAN: REFERRING PHYSICIAN: PRUDENCIO WATERMAN MD DATE OF SERVICE: 10/03/20 Case Management Discharge Planning Summary COMMENTS ENTERED DATE: 10/01/20 11:59 CT COMMENT TYPE: Discharge Planning REVIEWER: Saba Farrell CM met with patient at bedside after obtaining verbal consent. CM discussed availability / needs of home health, REHAB and medical equipment. Patient states has walker and cane at home, lives alone. Plans to return home when dc'd and daughter should be able to greens picker after she gets off work at 2pm. Patient would like care 4 home health. NAINA and IMM signed and placed on chart. Referral faxed to care 4. Patient pcp is Dr. Patten and he uses pharmacy at [place] [phone]. CM to follow and assist as needed. DCP REVIEW SUMMARY ANTICIPATED D/C DATE: EXPECTED LOS : CASE STATUS: DCP Initiated INITIAL REVIEW: 09/25/2020 INITIAL REVIEWER: Saba Farrell FINAL DISCHARGE DISPOSITION: : FINAL REVIEWER: FINAL REVIEW DATE: DCP Focus Questions & Answers QUESTION: ANSWER : PATIENT: ADILNEE REDMAN ENCOUNTER: [id number] MEDICAL RECORD#: [id number] ADMISSION DATE: 09/25/2020 DISCHARGE DATE: 10/01/2020 ATTENDING MD: PRUDENCIO HILL : AGE: 74 MARITAL STATUS: D DC PLAN ID: [id number] FACILITY: [facility] PRINTED ON: 10/03/20 12:54 CT All edits/amendments must be made on the electronic document DICTATION DATE: 10/03/20 125 CVICU NURSE: SENDY 10/03/20 1254 RPT#: [id number] DC DATE:10/01/20 STATUS: DIS IN [place] [address] [place] [address] END OF REPORT
--- NOTE | 2020-10-16 10:22 | MORECARE ---
CASE MANAGEMENT DISCHARGE SUMMARY PATIENT: ADILENE REDMAN UNIT: [id number] ADM DATE: 09/25/20 AGE: 75 : 47 SEX: M ROOM/BED: D.2236 AUTHOR: JAZIEL,DOC PHYSICIAN: REFERRING PHYSICIAN: PRUDENCIO WATERMAN MD DATE OF SERVICE: 10/16/20 Case Management Discharge Planning Summary COMMENTS ENTERED DATE: 10/01/20 11:59 CT COMMENT TYPE: Discharge Planning REVIEWER: Saba Farrell CM met with patient at bedside after obtaining verbal consent. CM discussed availability / needs of home health, REHAB and medical equipment. Patient states has walker and cane at home, lives alone. Plans to return home when dc'd and daughter should be able to shredder picker after she gets off work at 2pm. Patient would like care 4 home health. NAINA and IMM signed and placed on chart. Referral faxed to care 4. Patient pcp is Dr. Patten and he uses pharmacy at [place] [phone]. CM to follow and assist as needed. DCP REVIEW SUMMARY ANTICIPATED D/C DATE: EXPECTED LOS : CASE STATUS: DCP Initiated INITIAL REVIEW: 09/25/2020 INITIAL REVIEWER: Saba Farrell FINAL DISCHARGE DISPOSITION: : FINAL REVIEWER: FINAL REVIEW DATE: DCP Focus Questions & Answers QUESTION: ANSWER : PATIENT: ADILENE REDMAN ENCOUNTER: [id number] MEDICAL RECORD#: [id number] ADMISSION DATE: 09/25/2020 DISCHARGE DATE: 10/01/2020 ATTENDING MD: PRUDENCIO HILL : AGE: 75 MARITAL STATUS: D DC PLAN ID: [id number] FACILITY: [facility] PRINTED ON: 10/16/20 10:22 CT All edits/amendments must be made on the electronic document DICTATION DATE: 10/16/20 102 DIRECTOR SEARCH MARKETING STRATEGIES: SENDY 10/16/20 1022 RPT#: [id number] DC DATE:10/01/20 STATUS: DIS IN [facility] [address] [place] [address] END OF REPORT
== END 2020-10-01 14:24 | disposition home health service (06) | DRG 897 ==
LOC: D.ER 18:16 → D.MS 20:36
PROVIDERS: Emergency Medicine; Family Medicine; ADMIT Family Medicine; ATTEND Family Medicine
DX: F10.239 Alcohol dependence with withdrawal, unspecified (principal); D61.818 Other pancytopenia; N39.0 Urinary tract infection, site not specified; M62.82 Rhabdomyolysis; E83.42 Hypomagnesemia; F17.200 Nicotine dependence, unspecified, uncomplicated; Z85.46 Personal history of malignant neoplasm of prostate; W19.XXXA Unspecified fall, initial encounter; I12.9 Hypertensive chronic kidney disease with stage 1 through stage 4 chronic kidney disease, or unspecified chronic kidney disease; E11.22 Type 2 diabetes mellitus with diabetic chronic kidney disease; N18.9 Chronic kidney disease, unspecified; D63.1 Anemia in chronic kidney disease; E78.5 Hyperlipidemia, unspecified